=== PATIENT | male | born 1955 | race Caucasian/White ===

== ENCOUNTER 2019-04-17 14:03 | Outpatient (CLI) | payer MEDICAID ==
[2019-04-17 17:52] LABS: BASOPHILS % (AUTO) 0.7 %; EOSINOPHILS % (AUTO) 0.7 %; HGB - HEMOGLOBIN 12.3 g/dL (14.0-18.0); LYMPHOCYTES # (AUTO) 1.2 10^3/uL (1.5-3.5); LYMPHOCYTES % (AUTO) 20.8 %; MEAN CORPUSCULAR HEMOGLOBIN 27.6 pg (27.0-31.0); MEAN CORPUSCULAR HGB CONC 30.6 g/dL (32.0-36.0); MEAN CORPUSCULAR VOLUME 90.1 fL (80.0-94.0); MONOCYTES # (AUTO) 0.3 10^3/uL (0.0-1.0); MONOCYTES % (AUTO) 5.2 %; NEUTROPHILS # (AUTO) 4.3 10^3/uL (1.5-6.6); NEUTROPHILS % (AUTO) 72.3 %; PLT - PLATELET COUNT 408 10^3/uL (130-450); RED BLOOD COUNT 4.46 10^6/uL (4.70-6.10); RED CELL DISTRIBUTION WIDTH 15.4 % (12.0-15.0)
[2019-04-17 17:59] LABS: ALBUMIN 3.1 g/dL (3.2-5.5); ALBUMIN/GLOBULIN RATIO 0.7 (1.0-2.2); ALKALINE PHOSPHATASE 73 IU/L (42-121); ALT ALANINE AMINOTRANSFERASE < 10 IU/L (10-60); AST ASPARTATE AMINOTRANSFERASE 13 IU/L (10-42); BILIRUBIN,TOTAL 0.4 mg/dL (0.2-1.0); BUN - BLOOD UREA NITROGEN 11 mg/dL (6-20); CALCIUM 8.3 mg/dL (8.5-10.3); CARBON DIOXIDE - CO2 23 mmol/L (21-32); CHLORIDE 106 mmol/L (101-111); CREATININE 0.6 mg/dL (0.6-1.2); GFR - MDRD 137 (>89); GLUCOSE 89 mg/dL (70-100); SODIUM 139 mmol/L (135-145); TOTAL PROTEIN 7.4 g/dL (6.7-8.2)
[2019-04-18 13:21] LABS: HEPATITIS C ANTIBODY NON-REACTIVE (NON-REACTIVE)
[2019-04-21 12:12] LABS: HSV 1 IGG TYPE SPECIFIC AB <0.90 index; HSV 2 IGG TYPE SPECIFIC AB >23.00 index
== END 2019-04-17 14:04 | disposition home or self-care (01) ==
LOC: LAB.S 14:03
PROVIDERS: ATTEND Internal Medicine
DX: D75.89 Other specified diseases of blood and blood-forming organs (principal); Z20.2 Contact with and (suspected) exposure to infections with a predominantly sexual mode of transmission
CPT/HCPCS: 36415; 80053; 81599; 85025; 86317; 86592; 86695; 86696; 86803

== ENCOUNTER 2019-09-25 15:06 | Emergency (ER) | payer MEDICAID ==
[2019-09-25] MEDS ORDERED: ONDANSETRON 4 MG/2 ML VIAL IVP STA (15:24)
[2019-09-25] MEDS ORDERED: HYDROmorphone 1 MG/ML CARPUJECT IVP STA (15:24)
--- NOTE | 2019-09-25 15:26 | ED Physician Documentation ---
History of Present Illness - Stated complaint Stated Complaint: Male - Chief complaint Chief Complaint: General - History obtained from History obtained from: Patient - History of Present Illness Timing: Today (He has a longstanding groin hernia, he was always able to pop it back in. Today it popped out and became quite large and uncomfortable and cannot do anything with it. Pain is severe.) Review of Systems Ten Systems: 10 systems reviewed and negative Constitutional: denies: Fever, Chills Cardiac: reports: Reviewed and negative Respiratory: reports: Reviewed and negative GI: denies: Abdominal Pain, Nausea, Vomiting, Constipation, Diarrhea PD PAST MEDICAL HISTORY - Past Medical History Past Medical History: No - Past Surgical History Past Surgical History: No - Present Medications Home Medications: Ambulatory Orders Medication Instructions Recorded Confirmed Azithromycin [Zithromax] 250 mg PO DAILY #6 tablet 06/15/16 Benzonatate [Tessalon] 100 mg PO TID PRN #20 capsule 06/15/16 guaiFENesin/CODEINE [Robitussin AC] 5 - 10 ml PO Q6H PRN #120 udc 06/15/16 Cetirizine [ZyrTEC] 10 mg PO DAILY #20 tablet 06/20/16 dexAMETHasone [Decadron] 4 mg PO DAILY #5 tablet 06/20/16 - Allergies Allergies/Adverse Reactions: Allergies Allergy/AdvReac Type Severity Reaction Status Date / Time ibuprofen Allergy Hives Verified 09/25/19 15:13 - Social History Does the pt smoke?: No Smoking Status: Never smoker Does the pt drink ETOH?: Yes - Family History Family history: reports: Non contributory - POLST Patient has POLST: No PD ED PE NORMAL - Vitals Vital signs reviewed: Yes - General General: Alert and oriented X 3, Other (He appears slightly uncomfortable and agitated) - HEENT HEENT: PERRL, EOMI - Neck Neck: Supple, no meningeal sign, No bony TTP - Cardiac Cardiac: RRR, No murmur - Respiratory Respiratory: No respiratory distress, Clear bilaterally - Abdomen Abdomen: Soft, Non tender, Other (There is a massive right groin hernia Into the scrotum that is firm and tender. Bedside ultrasound confirms that the contents are bowel.) - Back Back: No CVA TTP, No spinal TTP - Derm Derm: Normal color, Warm and dry - Extremities Extremities: No edema, No calf tenderness / cord - Neuro Neuro: Alert and oriented X 3, Normal speech Results - Vitals Vitals: Vital Signs - 24 hr 09/25/19 15:13 Temperature 36.7 C Heart Rate 64 Respiratory 18 Rate Blood Pressure 167/89 H O2 Saturation 98 Oxygen O2 Source Room air - Labs Labs: Laboratory Tests 09/25/19 09/25/19 09/25/19 15:34 15:34 15:34 WBC 10.9 H RBC 5.03 Hgb 15.0 Hct 47.1 MCV 93.6 MCH 29.8 MCHC 31.8 L RDW 14.1 Plt Count 414 MPV 8.8 Neut # (Auto) 9.4 H Lymph # (Auto) 1.0 L [place] # (Auto) 0.3 Eos # (Auto) 0.0 Baso # (Auto) 0.0 Absolute Nucleated RBC 0.00 Nucleated RBC % 0.0 PT 11.9 INR 1.0 Sodium 138 Potassium 3.8 Chloride 104 Carbon Dioxide 23 Anion Gap 11.0 BUN 14 Creatinine 0.7 Estimated GFR (MDRD) 114 Glucose 164 H Calcium 8.6 Total Bilirubin 0.4 AST 16 ALT 10 Alkaline Phosphatase 88 Total Protein 8.0 Albumin 3.4 Globulin 4.6 H Albumin/Globulin Ratio 0.7 L Lipase 31 PD MEDICAL DECISION MAKING - ED course ED course: This is a 64-year-old gentleman with a very large incarcerated inguinal hernia. After some pain medication he actually reduced it himself. It was visually normal after that. It certainly was not prior to the reduction. Departure - Departure Disposition: 01 Home, Self Care Clinical Impression: Incarcerated left inguinal hernia Condition: Good Record reviewed to determine appropriate education?: Yes Instructions: ED Hernia Inguinal Follow-Up: Abel Jacobo MD [Provider Admit Priv/Credential] - Comments: If it pops out like that again and you cannot get it in, return immediately for reevaluation. Otherwise make an appointment with the surgeon for hernia repair. Your blood pressure was elevated today on check into the emergency department. This does not mean that you have hypertension, it is a common phenomenon to come to the emergency department and have elevated blood pressure. I recommend that you see your primary care physician within the week to have it rechecked when you are feeling better.
[2019-09-25 15:41] LABS: BASOPHILS % (AUTO) 0.4 %; EOSINOPHILS % (AUTO) 0.1 %; LYMPHOCYTES % (AUTO) 9.6 %; MEAN CORPUSCULAR HEMOGLOBIN 29.8 pg (27.0-31.0); MEAN CORPUSCULAR HGB CONC 31.8 g/dL (32.0-36.0); MEAN CORPUSCULAR VOLUME 93.6 fL (80.0-94.0); MEAN PLATELET VOLUME 8.8 fL (7.4-11.4); MONOCYTES # (AUTO) 0.3 10^3/uL (0.0-1.0); MONOCYTES % (AUTO) 2.8 %; NEUTROPHILS # (AUTO) 9.4 10^3/uL (1.5-6.6); NEUTROPHILS % (AUTO) 86.5 %; PLT - PLATELET COUNT 414 10^3/uL (130-450); RED BLOOD COUNT 5.03 10^6/uL (4.70-6.10); RED CELL DISTRIBUTION WIDTH 14.1 % (12.0-15.0); WHITE BLOOD COUNT 10.9 x10^3/uL (4.8-10.8)
[2019-09-25 15:54] LABS: ALBUMIN 3.4 g/dL (3.2-5.5); ALBUMIN/GLOBULIN RATIO 0.7 (1.0-2.2); BILIRUBIN,TOTAL 0.4 mg/dL (0.2-1.0); CALCIUM 8.6 mg/dL (8.5-10.3); CREATININE 0.7 mg/dL (0.6-1.2)
[2019-09-25 15:58] LABS: PT - PROTHROMBIN TIME 11.9 secs (9.9-12.6)
[2019-09-25 16:14] VITALS: BP 132/84
== END 2019-09-25 16:27 | disposition home or self-care (01) ==
LOC: ED 15:06
DX: K40.30 Unilateral inguinal hernia, with obstruction, without gangrene, not specified as recurrent (principal); R03.0 Elevated blood-pressure reading, without diagnosis of hypertension
CPT/HCPCS: 36415; 80053; 83690; 85025; 85610; 96374; 96375; 99283; 99284; J1170

== ENCOUNTER 2019-10-07 14:45 | Day surgery (SDC) | payer MEDICAID ==
[2019-10-07] MEDS ORDERED: HYDROmorphone 1 MG/ML CARPUJECT IVP STA ×2 (14:58→15:52)
--- NOTE | 2019-10-07 14:59 | ED Physician Documentation ---
PD HPI ABD PAIN - Stated complaint Stated Complaint: ABD PX - Chief complaint Chief Complaint: Abd Pain - History obtained from History obtained from: Patient (64-year-old gentleman with known left inguinal hernia that is been bothering for a long time. I saw him a couple weeks ago and it was incarcerated but we were able to reduce it after some pain medication. Is been out again for about 3 hours now but not quite as painful as last time. He has an appointment for definitive repair next month.) Review of Systems Constitutional: reports: Reviewed and negative Cardiac: reports: Reviewed and negative Respiratory: reports: Reviewed and negative PD PAST MEDICAL HISTORY - Past Surgical History Past Surgical History: No - Present Medications Home Medications: Ambulatory Orders Medication Instructions Recorded Confirmed Azithromycin [Zithromax] 250 mg PO DAILY #6 tablet 06/15/16 Benzonatate [Tessalon] 100 mg PO TID PRN #20 capsule 06/15/16 guaiFENesin/CODEINE [Robitussin AC] 5 - 10 ml PO Q6H PRN #120 udc 06/15/16 Cetirizine [ZyrTEC] 10 mg PO DAILY #20 tablet 06/20/16 dexAMETHasone [Decadron] 4 mg PO DAILY #5 tablet 06/20/16 - Allergies Allergies/Adverse Reactions: Allergies Allergy/AdvReac Type Severity Reaction Status Date / Time ibuprofen Allergy Hives Verified 10/07/19 14:52 - Social History Does the pt smoke?: No Smoking Status: Never smoker Does the pt drink ETOH?: Yes - POLST Patient has POLST: No PD ED PE NORMAL - Vitals Vital signs reviewed: Yes - General General: Alert and oriented X 3, No acute distress - HEENT HEENT: PERRL, EOMI - Neck Neck: Supple, no meningeal sign, No bony TTP - Cardiac Cardiac: RRR, No murmur - Respiratory Respiratory: No respiratory distress, Clear bilaterally - Abdomen Abdomen: Non tender - Male Male : Other (Large incarcerated and tender left inguinal hernia) - Back Back: No CVA TTP, No spinal TTP - Derm Derm: Normal color, Warm and dry - Extremities Extremities: No edema, No calf tenderness / cord - Neuro Neuro: Alert and oriented X 3, Normal speech - Psych Psych: Normal mood, Normal affect Results - Vitals Vitals: Vital Signs - 24 hr 12/25/19 14:48 Temperature 36.2 C L Heart Rate 84 Respiratory 20 Rate Blood Pressure 161/93 H O2 Saturation 97 Oxygen O2 Source Room air - Labs Labs: Laboratory Tests 10/07/19 10/07/19 15:06 15:06 WBC 7.0 RBC 4.74 Hgb 13.9 L Hct 44.1 MCV 93.0 MCH 29.3 MCHC 31.5 L RDW 14.0 Plt Count 381 MPV 8.4 Neut # (Auto) 5.5 Lymph # (Auto) 0.7 L [place] # (Auto) 0.3 Eos # (Auto) 0.3 Baso # (Auto) 0.0 Absolute Nucleated RBC 0.00 Nucleated RBC % 0.0 Sodium 139 Potassium 3.6 Chloride 102 Carbon Dioxide 25 Anion Gap 12.0 BUN 14 Creatinine 0.7 Estimated GFR (MDRD) 114 Glucose 111 H Calcium 8.6 Total Bilirubin 0.6 AST 17 ALT 12 Alkaline Phosphatase 85 Total Protein 7.6 Albumin 3.6 Globulin 4.0 Albumin/Globulin Ratio 0.9 L Lipase 34 PD MEDICAL DECISION MAKING - ED course ED course: On his last visit I was able to get back and after some meds but after divided rounds of medications here we had no luck and I spoke with Dr. Jacobo at 355. Departure - Departure Disposition: ED Transfer to [facility] Clinical Impression: Incarcerated left inguinal hernia Condition: Stable
[2019-10-07] MEDS ORDERED: ONDANSETRON 4 MG/2 ML VIAL IVP STA (15:09)
[2019-10-07 15:11] LABS: BASOPHILS % (AUTO) 0.6 %; EOSINOPHILS # (AUTO) 0.3 10^3/uL (0.0-0.7); EOSINOPHILS % (AUTO) 4.7 %; HGB - HEMOGLOBIN 13.9 g/dL (14.0-18.0); LYMPHOCYTES # (AUTO) 0.7 10^3/uL (1.5-3.5); LYMPHOCYTES % (AUTO) 10.1 %; MEAN CORPUSCULAR HEMOGLOBIN 29.3 pg (27.0-31.0); MEAN CORPUSCULAR HGB CONC 31.5 g/dL (32.0-36.0); MEAN PLATELET VOLUME 8.4 fL (7.4-11.4); MONOCYTES # (AUTO) 0.3 10^3/uL (0.0-1.0); MONOCYTES % (AUTO) 4.7 %; NEUTROPHILS # (AUTO) 5.5 10^3/uL (1.5-6.6); NEUTROPHILS % (AUTO) 79.5 %; PLT - PLATELET COUNT 381 10^3/uL (130-450); RED BLOOD COUNT 4.74 10^6/uL (4.70-6.10)
[2019-10-07] MEDS ORDERED: ONDANSETRON 4 MG/2 ML VIAL ONE (15:11)
[2019-10-07] MEDS ORDERED: LORazepam 2 MG/ML VIAL IVP STA (15:19)
[2019-10-07 15:28] LABS: ALBUMIN 3.6 g/dL (3.2-5.5); ALBUMIN/GLOBULIN RATIO 0.9 (1.0-2.2); BILIRUBIN,TOTAL 0.6 mg/dL (0.2-1.0); CALCIUM 8.6 mg/dL (8.5-10.3); CREATININE 0.7 mg/dL (0.6-1.2); TOTAL PROTEIN 7.6 g/dL (6.7-8.2)
[2019-10-07] MEDS ORDERED: fentaNYL 100 MCG/2 ML VIAL IVP ONE (16:16)
[2019-10-07] MEDS ORDERED: NEOSTIGMINE 1 MG/1 ML 10 ML MDV IVP ONE (16:16)
[2019-10-07] MEDS ORDERED: GLYCOPYRROLATE 1 MG/5 ML VIAL IVP ONE (16:16)
[2019-10-07] MEDS ORDERED: PROPOFOL 200 MG/20 ML VIAL IVP ONE (16:16)
[2019-10-07] MEDS ORDERED: ROCURONIUM 50 MG/5 ML VIAL IVP ONE (16:16)
[2019-10-07] MEDS ORDERED: ONDANSETRON 4 MG/2 ML VIAL IVP ONE (16:16)
[2019-10-07] MEDS ORDERED: DEXAMETHASONE 4 MG/ML VIAL IVP ONE (16:16)
--- NOTE | 2019-10-07 16:23 | HISTORY & PHYSICAL EXAMINATION ---
HPI - Admitted From Admitted from: ED - History Obtained From Records Reviewed: RN notes reviewed, Old records reviewed History obtained from: Patient Exam limitations: No limitations - History of Present Illness Severity at the worst: reports: Moderate Pain Quality: reports: Sharp, Aching, Cramping Context-Pain started w/: reports: Exertion, Movement, Palpation, Rest Timing: reports: Gradual onset Duration: reports: Hours: (At least 6) Associated symptoms: reports: Nausea HPI Comment/Other: Juni is a 64-year-old gentleman who is well-known to me. He has a large left inguinal hernia that I have seen him for in the office and in fact he is already on the operating room scheduled to have it repaired. He was seen in our emergency department about 2 weeks ago with an incarceration of this hernia and was subsequently able to reduce it. Unfortunately, it came out sometime this morning and he is not been able to get it back in since. He admits that he lets it sort of hang out for a while before he tries to reduce it but this time it became so swollen that he is not been able to move it. Additionally he has been very nauseated. He reports that he is in significantly more pain than he was last I saw him PMH/PSH - Past Medical History Cardiovascular: positive: None Respiratory: positive: Other (Chronic cough) Neuro: positive: None Endocrine/Autoimmune: positive: None GI: positive: None [employer]: positive: None : positive: None HEENT: positive: None Psych: positive: None Musculoskeletal: positive: None Derm: positive: None MRSA Hx?: No Social & Family Hx - Social History Does the pt smoke?: No Smoking Status: Never smoker Does the pt drink ETOH?: Yes - POLST Patient has POLST: No Meds/Allgy - Home Medications Home Medications: Ambulatory Orders Medication Instructions Recorded Confirmed Aspirin 975 mg PO Q8H 10/07/19 10/07/19 - Allergies Allergies/Adverse Reactions: Allergies Allergy/AdvReac Type Severity Reaction Status Date / Time ibuprofen Allergy Hives Verified 10/07/19 14:52 Review of Systems - Respiratory Respiratory: reports: Cough - Gastrointestinal Gastrointestinal: reports: Abdominal pain, Nausea - All Other Systems All Other Systems: reports: Reviewed and negative Exam - Vital Signs Reviewed Vital Signs: Yes Vital Signs: Vital Signs x48h Temp Pulse Resp BP Pulse Ox 10/07/19 16:02 36.8 C 55 L 12 164/91 H 97 10/07/19 14:48 36.2 C L 84 20 161/93 H 97 - Physical Exam General Appearance: positive: Alert, Moderate distress Eyes Bilateral: positive: Normal inspection, PERRL, EOMI ENT: positive: ENT inspection nml, Pharynx nml, No signs of dehydration Neck: positive: Nml inspection, No JVD, Trachea midline. negative: Thyromegaly Respiratory: positive: Chest non-tender, No respiratory distress, Breath sounds nml Cardiovascular: positive: Regular rate & rhythm, No murmur Peripheral Pulses: positive: 1+ Abdomen: positive: Other (Very large, incarcerated left inguinal hernia. Borborygmi within the sack. No erythema of the overlying skin) Back: negative: CVA tenderness (R), CVA tenderness (L) Skin: positive: Color nml Extremities: positive: Non-tender, Full ROM Neurologic/Psychiatric: positive: Oriented x3, Other (No focal deficit) Results - Lab Results Fish Bones: 10/07/19 15:06 10/07/19 15:06 Other Lab Results: Lab Results x24hrs 10/07/19 10/07/19 Range/Units 15:06 15:06 WBC 7.0 (4.8-10.8) x10^3/uL RBC 4.74 (4.70-6.10) 10^6/uL Hgb 13.9 L (14.0-18.0) g/dL Hct 44.1 (42.0-52.0) % MCV 93.0 (80.0-94.0) fL MCH 29.3 (27.0-31.0) pg MCHC 31.5 L (32.0-36.0) g/dL RDW 14.0 (12.0-15.0) % Plt Count 381 (130-450) 10^3/uL MPV 8.4 (7.4-11.4) fL Neut # (Auto) 5.5 (1.5-6.6) 10^3/uL Lymph # (Auto) 0.7 L (1.5-3.5) 10^3/uL [place] # (Auto) 0.3 (0.0-1.0) 10^3/uL Eos # (Auto) 0.3 (0.0-0.7) 10^3/uL Baso # (Auto) 0.0 (0.0-0.1) 10^3/uL Absolute Nucleated RBC 0.00 x10^3/uL Nucleated RBC % 0.0 /100WBC Sodium 139 (135-145) mmol/L Potassium 3.6 (3.5-5.0) mmol/L Chloride 102 (101-111) mmol/L Carbon Dioxide 25 (21-32) mmol/L Anion Gap 12.0 (6-13) BUN 14 (6-20) mg/dL Creatinine 0.7 (0.6-1.2) mg/dL Estimated GFR (MDRD) 114 (>89) Glucose 111 H (70-100) mg/dL Calcium 8.6 (8.5-10.3) mg/dL Total Bilirubin 0.6 (0.2-1.0) mg/dL AST 17 (10-42) IU/L ALT 12 (10-60) IU/L Alkaline Phosphatase 85 (42-121) IU/L Total Protein 7.6 (6.7-8.2) g/dL Albumin 3.6 (3.2-5.5) g/dL Globulin 4.0 (2.1-4.2) g/dL Albumin/Globulin Ratio 0.9 L (1.0-2.2) Lipase 34 (22-51) U/L Impression/Plan - Problem List Problem List: Incarcerated left inguinal hernia with bowel obstruction. We have discussed the risks and benefits of repair and the patient has expressed his desire to complete the procedure today. We will proceed to the operating room as soon as a room is available.
--- NOTE | 2019-10-07 16:30 | PHARMACY PROGRESS NOTE ---
- Best Possible Medication History Admit Date and Time: Processed by: Pharmacy Medication History completed: Yes Patient Interview: Completed As the person ultimately responsible for medication therapy, providers are able to order a medication from an existing home medication list in [facility] via the "Reconcile Routine" prior to Confirmation of that medication by desktop support engineer. Such practice is discouraged except when the physician, in their clinical judgment, deems that a medical need exists for a medication without regard to previous use.
[2019-10-07] MEDS ORDERED: ceFAZolin 2 GM in SODIUM CHLORIDE 0.9% 100ML 100 ML IV STA (17:15)
--- NOTE | 2019-10-07 18:01 | ANESTHESIA ---
Pre-Anesthesia VS, & Labs - Diagnosis left incarcerated inguinal hernia - Procedure left inguinal hernia repair Vital Signs: Temp Pulse Resp BP Pulse Ox 36.8 C 55 L 12 164/91 H 97 10/07/19 16:02 10/07/19 16:02 10/07/19 16:02 10/07/19 16:02 10/07/19 16:02 Height 5 ft 10 in Weight (kg) 49.895 kg Body Mass Index 15.7 - Lab Results Current Lab Results: Laboratory Tests 10/07/19 15:06: Sodium 139, Potassium 3.6, Chloride 102, Carbon Dioxide 25, Anion Gap 12.0, BUN 14, Creatinine 0.7, Estimated GFR (MDRD) 114, Glucose 111 H, Calcium 8.6, Total Bilirubin 0.6, AST 17, ALT 12, Alkaline Phosphatase 85, Total Protein 7.6, Albumin 3.6, Globulin 4.0, Albumin/Globulin Ratio 0.9 L, Lipase 34 10/07/19 15:06: WBC 7.0, RBC 4.74, Hgb 13.9 L, Hct 44.1, MCV 93.0, MCH 29.3, MCHC 31.5 L, RDW 14.0, Plt Count 381, MPV 8.4, Neut # (Auto) 5.5, Lymph # (Auto) 0.7 L, [place] # (Auto) 0.3, Eos # (Auto) 0.3, Baso # (Auto) 0.0, Absolute Nucleated RBC 0.00, Nucleated RBC % 0.0 Fish Bones: 10/07/19 15:06 10/07/19 15:06 Home Medications and Allergies Home Medications: Ambulatory Orders Aspirin 975 mg PO Q8H 10/07/19 Aspirin 975 mg PO Q8H 10/07/19 Allergies/Adverse Reactions: Allergies Allergy/AdvReac Type Severity Reaction Status Date / Time ibuprofen Allergy Hives Verified 10/07/19 14:52 Anes History & Medical History - Anesthetic History Anesthesia Complications: reports: Other-see comment (denies having any anesthetic in the past) Family history of Anesthesia Complications: Denies Family history of Malignant Hyperthermia: Denies - Medical History Cardiovascular: reports: None Pulmonary: reports: Other (Chronic cough) Gastrointestinal: reports: None Urinary: reports: None Neuro: reports: None Musculoskeletal: reports: None Endocrine/Autoimmune: reports: None Blood Disorders: reports: None Skin: reports: None Smoking Status: Never smoker (smokes week through a water pipe everyday) Psychosocial: reports: No issues indicated Exam General: Alert, Oriented x3, Cooperative, No acute distress Dental: Poor dentition (very poor dentition) Mouth Openin Fingerbreadth Neck Mobility: Normal Mallampati classification: II Thyromental Distance: 4-6 cm Respiratory: Lungs clear, Normal breath sounds, No respiratory distress, No accessory muscle use Cardiovascular: Regular rate, Normal S1, Normal S2, No murmurs Abdomen: Normal bowel sounds, Soft, No tenderness, No hepatospenomegaly, No masses, Other (reports pain in the left groin area) Extremities: No clubbing, No cyanosis, No edema, Normal pulses, No tenderness/swelling Neurological: Normal gait, Normal speech, Strength at 5/5 X4 ext, Normal tone, Sensation intact, Cranial nerves 3-12 NL, Reflexes 2+ Mental/Cognitive Status: Alert/Oriented X3, Normal for patient Cognitive Status: Within normal limits Plan Anesthesia Type: General Consent for Procedure(s) Verified and Reviewed: Yes Code Status: Attempt Resuscitation ASA classification: 2-Mild systemic disease Is this case an emergency?: Yes
[2019-10-07] MEDS ORDERED: ceFAZolin 1 GM VIAL ONE (18:20)
[2019-10-07] MEDS ORDERED: BUPIVACAINE 0.5% PF 30 ML VIAL ONE (18:20)
[2019-10-07] MEDS ORDERED: LIDOCAINE 1%-EPI 1:100000 20 ML MDV ONE (18:20)
[2019-10-07] MEDS: LACTATED RINGERS 1,000 ML IV ONE (19:23)
[2019-10-07] MEDS ORDERED: LACTATED RINGERS 1,000 ML IV ONE (19:23)
[2019-10-07] MEDS ORDERED: ONDANSETRON 4 MG/2 ML VIAL IVP PRN (19:55)
[2019-10-07] MEDS ORDERED: oxyCODONE 5 MG TABLET PO PRN (19:55)
[2019-10-07] MEDS ORDERED: ACETAMINOPHEN 325 MG TABLET PO PRN (19:55)
--- NOTE | 2019-10-07 19:55 | OPERATIVE REPORT ---
Operative Report - General Procedure Date: 10/07/19 Planned Procedure: Left inguinal hernia repair Pre-Op Diagnosis: Very large incarcerated left inguinal hernia with bowel obstruction Procedure Performed: Left inguinal hernia repair Post Op Diagnosis: Large indirect left inguinal hernia - Procedure Note Primary Surgeon: Odalis Anesthesia Provider: DEANDRA Clayton Anesthesia Technique: General LMA, Local, Regional block Pathology: None Estimated Blood Loss (mL): 10 Findings: Very large indirect left inguinal hernia. Hernia spontaneously reduced after induction of anesthesia Complications: None apparent - Other Other Information/Narrative: After obtaining informed consent, the patient is brought to the operating room and placed in the supine position on the operating table. Following successful induction of general anesthesia, appropriate padding of all bony prominences, and placement of appropriate monitors, the abdomen was prepped and draped in the standard surgical fashion. A timeout was held per scope protocol. All elements of the surgical safety checklist were followed before, during, and after the procedure. We began the procedure by infiltrating a mixture of local anesthetics medial to the anterior superior iliac spine on the left. This was to provide an ileal inguinal nerve block. We then selected a site for the incision in the left inguinal region. This was anesthetized and the incision was created and carried down through the skin and subcutaneous tissue. Eric's fascia was divided revealing the external oblique aponeurosis. The aponeurosis was opened in the direction of its fibers revealing a large fluid containing, somewhat deflated sac.The sac continued along with the spermatic cord to the left groin. It was carefully reduced out of the scrotum and carefully dissecting it free from the spermatic cord and associated vessels. The sac was then reduced back into the abdominal cavity. We elected to repair this very large defect with a large Prolene hernia system bilayer mesh implant. This was dipped in Ancef solution and deployed into the defect per excel vba developer's directions. The overlying leaflet was then nicked laterally for placement of the spermatic cord. The leaflets were then reapproximated with a single suture. The overlying layer was sewn to the pubic tubercle medially, and the transversalis fascia superiorly and laterally. The wound was then checked for hemostasis and irrigated with Ancef containing solution. The spermatic cord was seen to lie without tension on the surface of the mesh. The extra oblique aponeurosis was then reapproximated with running Vicryl suture Eric's fascia was closed in same fashion, and Monocryl stitches were placed in the skin. All sponge, needle, and instrument counts were correct at the conclusion of the case. The patient was allowed awaken from anesthesia without difficulty and taken to the postanesthesia care unit in good condition.
[2019-10-07] MEDS ORDERED: oxyCODONE/ACET 5/325 Prepack 4 PO ONE (22:43)
[2019-10-07 23:34] VITALS: BP 138/87
== END 2019-10-07 23:39 | disposition home or self-care (01) ==
LOC: ED 14:45 → SDS 16:15 → MS2 19:41 → SDS 23:39
PROVIDERS: ATTEND Surgery
PROC: 0YU60JZ Supplement Left Inguinal Region with Synthetic Substitute, Open Approach (ICD-10-PCS; principal; 2019-10-07 16:30)
DX: K40.30 Unilateral inguinal hernia, with obstruction, without gangrene, not specified as recurrent (principal)
CPT/HCPCS: 36415; 49505; 80053; 83690; 85025; 96374; 96375; 99283; 99285; A9270; C1781; J1170; J2060; J7120

== ENCOUNTER 2020-05-27 13:42 | Outpatient (CLI) | payer MEDICAID ==
--- NOTE | 2020-05-28 06:20 | XRAY Report ---
PROCEDURE: Hip 1 View LT INDICATIONS: LEFT HIP FRACTURE TECHNIQUE: 3 views of the hip were acquired. COMPARISON: 05/18/2020 FINDINGS: Bones: Patient is status post internal fixation of previously noted comminuted femoral neck/intertroc hanteric fracture with intramedullary raffi and femoral neck fixation screw placement. There is improve d left hip alignment. No new fracture or dislocation. 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 No suspicious bony lesions. The visualized pelvic ring appears intact. Soft tissues: No suspicious soft tissue calcifications or masses. IMPRESSION: Post ORIF changes in proximal left femur/femoral neck with improved left hip alignment. Reviewed by: Randy Castellanos MD on 05/27/2020 1:28 PM VANITA Approved by: Randy Castellanos MD on 05/27/2020 1:28 PM VANITA Station ID: [id number]
== END 2020-05-27 23:59 | disposition home or self-care (01) ==
LOC: DI.WCP 13:42
PROVIDERS: ATTEND Orthopaedic Surgery
DX: S72.142D Displaced intertrochanteric fracture of left femur, subsequent encounter for closed fracture with routine healing (principal)

== ENCOUNTER 2020-06-13 08:00 | Outpatient (CLI) | payer MEDICAID | END 2020-06-13 08:01 | disposition home or self-care (01) | LOC: DI.WCP 08:00 | PROVIDERS: ATTEND Orthopaedic Surgery | DX: Z01.812 Encounter for preprocedural laboratory examination (principal); Z20.828 Contact with and (suspected) exposure to other viral communicable diseases ==

== ENCOUNTER 2020-06-15 06:46 | Inpatient (IN) | payer MEDICAID ==
[2020-06-15] MEDS ORDERED: LACTATED RINGERS 1,000 ML IV ONE ×2 (06:55→13:48)
[2020-06-15] MEDS ORDERED: CEFAZOLIN SODIUM IN 0.9 % NACL 2 GM/100 ML BAG IV ONE (06:57)
[2020-06-15] MEDS ORDERED: CELECOXIB 100 MG CAPSULE PO ONE (06:57)
[2020-06-15] MEDS ORDERED: ACETAMINOPHEN 1,000 MG/100 ML 100 ML IV ONE ×2 (06:57→08:58)
[2020-06-15] MEDS ORDERED: EPINEPHrine 1 MG/ML AMP ONE (07:25)
[2020-06-15] MEDS ORDERED: BUPIVACAINE 0.5% PF 30 ML VIAL ONE (07:28)
[2020-06-15] MEDS ORDERED: KETOROLAC 30 MG/ML VIAL ONE (07:28)
[2020-06-15] MEDS ORDERED: ROPIVACAINE 0.2% PF 20ML VIAL ONE (07:28)
[2020-06-15 07:41] LABS: BASOPHILS # (AUTO) 0.1 10^3/uL (0.0-0.1); EOSINOPHILS % (AUTO) 0.3 %; HGB - HEMOGLOBIN 14.7 g/dL (14.0-18.0); LYMPHOCYTES # (AUTO) 1.1 10^3/uL (1.5-3.5); LYMPHOCYTES % (AUTO) 18.7 %; MEAN CORPUSCULAR HEMOGLOBIN 29.7 pg (27.0-31.0); MEAN CORPUSCULAR HGB CONC 31.7 g/dL (32.0-36.0); MEAN CORPUSCULAR VOLUME 93.7 fL (80.0-94.0); MONOCYTES # (AUTO) 0.3 10^3/uL (0.0-1.0); MONOCYTES % (AUTO) 5.6 %; NEUTROPHILS # (AUTO) 4.3 10^3/uL (1.5-6.6); NEUTROPHILS % (AUTO) 73.9 %; PLT - PLATELET COUNT 372 10^3/uL (130-450); RED BLOOD COUNT 4.95 10^6/uL (4.70-6.10); RED CELL DISTRIBUTION WIDTH 15.4 % (12.0-15.0); WHITE BLOOD COUNT 5.9 x10^3/uL (4.8-10.8)
--- NOTE | 2020-06-15 08:00 | ANESTHESIA ---
Pre-Anesthesia VS, & Labs - Diagnosis left femoral neck fracture - Procedure left Total hip arthroplasty, removal failed hardware Vital Signs: Temp Pulse Resp BP Pulse Ox 36.4 C L 96 12 133/95 H 99 06/15/20 06:56 06/15/20 06:56 06/15/20 06:56 06/15/20 06:56 06/15/20 06:56 Height 5 ft 6 in Weight (kg) 49 kg Body Mass Index 15.7 - NPO >8 hours - Lab Results Current Lab Results: Laboratory Tests 06/15/20 07:15: WBC 5.9, RBC 4.95, Hgb 14.7, Hct 46.4, MCV 93.7, MCH 29.7, MCHC 31.7 L, RDW 15.4 H, Plt Count 372, MPV 9.0, Neut # (Auto) 4.3, Lymph # (Auto) 1.1 L, [place] # (Auto) 0.3, Eos # (Auto) 0.0, Baso # (Auto) 0.1, Absolute Nucleated RBC 0.00, Nucleated RBC % 0.0 Lab results reviewed: Yes Fish Bones: 06/15/20 07:15 Home Medications and Allergies Home Medications: Ambulatory Orders Acetaminophen [Tylenol] 650 mg PO Q6H PRN 06/13/20 Aspirin 325 mg PO Q8H 10/07/19 Acetaminophen [Tylenol] 650 mg PO Q6H PRN 06/13/20 Allergies/Adverse Reactions: Allergies Allergy/AdvReac Type Severity Reaction Status Date / Time ibuprofen Allergy Hives Verified 10/07/19 14:52 Anes History & Medical History - Anesthetic History Anesthesia Complications: reports: No previous complications Family history of Anesthesia Complications: Denies Family history of Malignant Hyperthermia: Denies - Medical History Cardiovascular: reports: None Pulmonary: reports: None Gastrointestinal: reports: None Urinary: reports: None Neuro: reports: None Musculoskeletal: reports: Rheumatoid arthritis, Chronic back pain Endocrine/Autoimmune: reports: None Blood Disorders: reports: None Skin: reports: None Smoking Status: Current every day smoker Psychosocial: reports: Cannabis - Surgical History General: Other Orthopedic: Other Exam General: Alert, Oriented x3, Cooperative, No acute distress Dental: Poor dentition Mouth Openin Fingerbreadth Neck Mobility: Normal Mallampati classification: I Respiratory: Lungs clear, Normal breath sounds, No respiratory distress, No accessory muscle use Cardiovascular: Regular rate, Normal S1, Normal S2, No murmurs Plan Anesthesia Type: General, Fascia Iliaca Block Regional Block: Per Surgeon's request for Post Op pain control Consent for Procedure(s) Verified and Reviewed: Yes Code Status: Attempt Resuscitation ASA classification: 3-Severe systemic disease Is this case an emergency?: No
[2020-06-15] MEDS ORDERED: PROPOFOL 200 MG/20 ML VIAL IVP ONE (08:58)
[2020-06-15] MEDS ORDERED: fentaNYL 100 MCG/2 ML VIAL IVP ONE (08:58)
[2020-06-15] MEDS ORDERED: TRANEXAMIC ACID 1,000 MG/10 ML VIAL IV ONE (08:58)
[2020-06-15] MEDS ORDERED: LIDOCAINE-MPF 2% 5 ML VIAL IM ONE (08:58)
[2020-06-15] MEDS ORDERED: ROCURONIUM 50 MG/5 ML VIAL IVP ONE (08:58)
[2020-06-15] MEDS ORDERED: KETOROLAC 30 MG/ML VIAL IVP ONE (08:58)
[2020-06-15] MEDS ORDERED: ONDANSETRON 4 MG/2 ML VIAL IVP ONE (08:58)
[2020-06-15] MEDS ORDERED: DEXAMETHASONE 4 MG/ML VIAL IVP ONE (08:58)
[2020-06-15] MEDS ORDERED: MORPHINE 2 MG/ML CARPUJECT IVP PRN (09:01)
[2020-06-15] MEDS ORDERED: ATROPINE ABBOJECT 1 MG/10 ML SYRINGE IVP PRN (09:01)
[2020-06-15] MEDS ORDERED: METOCLOPRAMIDE 10 MG/2 ML VIAL IVP PRN (09:01)
[2020-06-15] MEDS ORDERED: NALOXONE 0.4 MG/ML VIAL IVP PRN (09:01)
[2020-06-15] MEDS ORDERED: fentaNYL 100 MCG/2 ML VIAL IVP PRN (09:01)
[2020-06-15] MEDS ORDERED: ePHEDrine 50 MG/ML VIAL IVP PRN (09:01)
[2020-06-15] MEDS ORDERED: ONDANSETRON 4 MG/2 ML VIAL IVP PRN ×2 (09:01→13:27)
[2020-06-15] MEDS ORDERED: HYDROmorphone 0.5 MG/0.5 ML SYRINGE IVP PRN (09:01)
[2020-06-15] MEDS ORDERED: LACTATED RINGERS 1,000 ML IV SCH (10:00)
--- NOTE | 2020-06-15 13:10 | XRAY Report ---
PROCEDURE: Hip w/Pelvis 1V LT INDICATIONS: IMPLANT PLACEMENT TECHNIQUE: AP pelvis with lateral view(s) of the bilateral hip(s). COMPARISON: 05/27/2020 FINDINGS: Single lateral view of the left hip demonstrates interval left total hip arthroplasty. No gross evide nce of an acute complicating hardware features. IMPRESSION: No gross evidence of acute, getting features status post left total hip arthroplasty. Reviewed by: Tee Madsen MD on 06/15/2020 1:08 PM PDT Approved by: Tee Madsen MD on 06/15/2020 1:08 PM PDT Station ID: [id number]
--- NOTE | 2020-06-15 13:22 | OPERATIVE REPORT ---
Operative Report - General Admit Date: 06/15/20 Procedure Date: 06/15/20 Planned Procedure: Removal of internal fixation left hip, left total hip arthroplasty Pre-Op Diagnosis: Mechanical failure of internal fixation, femoral neck fracture left hip, de Post Op Diagnosis: Same as preoperative diagnosis - Procedure Note Primary Surgeon: Dr. Elroy Gleason Secondary Surgeon: TIMO Garrido Anesthesia Technique: General ET tube, Regional block Estimated Blood Loss (mL): 400 Indications: This is a 64-year-old man who previously underwent intramedullary raffi and hip screw Fixation of a basilar femoral neck fracture to the left hip. His Fall was associated with weakness and perhaps alcohol use. He has a history of polyarticular rheumatoid arthritis but has not had any treatment for his arthritis. He has decreased body mass index. His fracture displaced and the lag screw cut out leading to fracture fixation failure left hip. Because of his history of rheumatoid arthritis and poor bone quality, conversion to a left total hip arthroplasty was felt to be the best for this patient and he was in agreement. Findings: The patient had a femoral neck fracture, no sign of healing, varus angulation at fracture site. The lag screw was loose within the femoral head. He had markedly decreased bone density to the femoral head, acetabulum and femur. There is no sign of any infection about the operative site either superficial or deep.The acetabulum had rather extensive articular cartilage loss, certainly much more diffuse than just the lag screw cut out region. Complications: None noted - Other Other Information/Narrative: The patient underwent a left total hip arthroplasty utilizing [employer] total hip arthroplasty system:Size 15 readapt femoral standard offset component, sleeveless and 290 mm in length with 36 mm Oxinium femoral head,And A physician fish hatchery assistant was utilized during the procedure to help with the exposure, reduction of hip, wound closure as well as prepping and draping. The patient was brought to the operating room, placed in a supine position. He was given a general endotracheal anesthetic, turned to the lateral decubitus position using a pegboard. The left hip and lower extremity was prepped and draped in a sterile manner in the usual fashion. The previous small incisions about the lateral hip were incorporated into a longitudinal lateral incision. The fascia duke was split and an initial self-retaining retractor was inserted. The vastus lateralis muscle was split exposing the distal locking screw and lag screw. The dissection was continued proximally reflecting the anterior third of the gluteus medius and splitting some of the gluteus medius muscle to expose the proximal end of the intramedullary raffi. The proximal locking screw was loosened and the lag screw was then removed from the femoral head. The lag screw was grossly loose and without sign of any infection. An anterior exposure of the hip was performed reflecting the gluteus medius and splitting the anterior hip capsule in a T-shaped fashion. The femoral head was removed with a corkscrew and measured approximately 46 mm in diameter. There is no sign of any fracture healing. The acetabulum was exposed with anterior and posterior acetabular retractors placed directly against bone to reduce any soft tissue impingement. The rim of the acetabulum was carefully exposed and the labrum was debrided as well as the ligamentum teres. He had bone loss all the way to the inner wall of the acetabulum and had most of the articular cartilage absent to the medial and superior aspect of the acetabulum. Reaming was started at 43 mm and carried out in 1 mm increments to 51 mm. The acetabulum was under reamed by 1 mm since he had reduced bone density. The 52 mm trial seemed to fit well. Therefore, a 52 mm press-fit 3-hole acetabular cup was impacted in 40 degrees of abduction and 20 degrees of anteversion. He had very good stability to push pull and rotation but because of reduced bone density, 2 acetabular screws were placed superiorly 135 mm in length and the other 30. Fixation of the acetabulum seem to be very good, especially considering his reduced bone density. A trial acetabular liner was inserted. The femoral canal was approached. The extractor for the femoral raffi was threaded and screwed into the intramedullary raffi after the distal locking screw has been removed. The intramedullary raffi was easily removed, again not seen any sign of infection in the femoral canal. The femoral canal was opened with a box osteotome and starting reamer. Canal reaming was performed using the INRIX femoral reaming system. A #15 size seem to provide good fixation and a trial reduction was performed. The trial reduction showed good stability and motion. A #15 femoral component was impacted. This provided very good stability to push pull and rotation. Trial reduction was performed. After the trial reduction, a 36 mm +4 mm femoral head was impacted on the femoral trunnion. The hip was reduced and was very stable to motion including abduction and external rotation. A shuck test showed good leg length tension. The wound was irrigated with dilute Betadine solution for 3 minutes, then pulsatile lavage. The vastus lateralis, hip capsule and gluteal muscles were closed with #1 Vicryl. The fascia duke was closed with #1 Vicryl. The subcutaneous tissue was closed with 2-0 Vicryl. Skin was closed with a Monocryl 3-0 suture and Dermabond. Before the closure had been completed, an intraoperative x-ray, single AP view was obtained and show satisfactory alignment of the hip arthroplasty and no sign of any intraoperative fracture. The patient's blood loss was slightly greater than normal. He seemed to have increased tissue bleeding, more of an oozing rather than a discrete blood vessel.neutral acetabular liner with 52 mm 3 hole acetabular cup. The acetabular liner was a neutral liner.He tolerated the procedure well, no clinical deformity of left leg, good range of motion and stability to left hip
[2020-06-15] MEDS ORDERED: oxyCODONE 5 MG TABLET PO PRN (13:27)
[2020-06-15] MEDS ORDERED: SODIUM CHLORIDE 0.9% 1,000 ML IV SCH (14:00)
--- NOTE | 2020-06-15 14:31 | ANESTHESIA POST OP EVALUATION ---
Anesthesia Post Eval - Post Anesthesia Eval Vitals: Last Vital Signs Temp 36 C L 06/15/20 14:15 Pulse 98 06/15/20 14:15 Resp 13 06/15/20 14:15 BP 118/87 H 06/15/20 14:15 Pulse Ox 96 06/15/20 14:15 CV Function Including HR & BP: positive: Stable Pain Control: positive: Satisfactory Nausea & Vomiting: positive: Negative Mental Status: positive: Baseline Respiratory Status: Airway Patent Hydration Status: Satisfactory Anesthesia Complications: positive: None
[2020-06-15] MEDS: ACETAMINOPHEN 325 MG TABLET PO PRN ×2 (14:55→20:27)
--- NOTE | 2020-06-15 15:41 | CONSULTATION NOTE ---
Referring Provider Name of Referring Provider:: Dr. Gleason Consult Date: 06/15/20 Chief Complaint - Chief Complaint Chief Complaint: left hip pain History of Present Illness - History Obtained From History obtained from: pt - History of Present Illness HPI Comment/Other: This is a 64-year-old man with a PMH significant for RA, chronic back pain, alcoholism, who had recently femoral neck fracture to the left hip from his fall and repaired in hospital. His fracture displaced and the lag screw cut out leading to fracture fixation failure left hip. orthopedics surgeon did conversion to a left total hip arthroplasty for pt today. hospitalist team was consulted for medical measurement. History - Past Medical History Cardiovascular: reports: None Respiratory: reports: None Neuro: reports: None Endocrine/Autoimmune: reports: None GI: reports: None RECONCILIATION MANAGER: reports: None : reports: None HEENT: reports: Chronic vision loss Psych: reports: None Musculoskeletal: reports: Rheumatoid arthritis, Chronic back pain Derm: reports: None MRSA Hx?: No - Past Surgical History General: reports: Other Ortho: reports: Other - POLST Patient has POLST: No Meds/Allgy - Home Medications Home Medications: Ambulatory Orders Medication Instructions Recorded Confirmed Ferrous Sulfate [Feosol] 325 mg PO DAILY #30 tablet 05/20/20 06/15/20 Vitamin [Trinatal Rx 1] 1 tab PO DAILYWM #30 tablet 05/20/20 06/15/20 Thiamine [Vitamin B-1] 100 mg PO DAILY #30 tablet 05/20/20 06/15/20 Acetaminophen [Tylenol] 650 mg PO Q6H PRN 06/13/20 06/15/20 - Allergies Allergies/Adverse Reactions: Allergies Allergy/AdvReac Type Severity Reaction Status Date / Time ibuprofen Allergy Hives Verified 10/07/19 14:52 Review of Systems - Constitutional Constitutional: denies: Fatigue, Fever, Chills, Weakness, Poor appetite, Danita phoresis - Eyes Eyes: denies: Pain, Blurred vision, Spots in vision, Field loss, Vision loss, Dipolpia - Ears, Nose & Throat Ears, Nose & Throat: denies: Ear pain, Nasal pain, Nasal discharge, Nosebleeds, Nasal obstruction, Postnasal drainage, Bleeding gums - Cardiovascular Cariovascular: denies: Irregular heart rate, Palpitations, Chest pain, Edema, Lightheadedness, Syncope, Exertional dyspnea, Decr. exercise tolerance - Respiratory Respiratory: denies: Cough, Sputum production, Wheezing, Snoring, Hemoptysis, Orthopnea, SOB at rest, SOB with exertion, Apnea - Gastrointestinal Gastrointestinal: denies: Abdominal pain, Abdominal distention, Constipation, Diarrhea, Rectal bleeding, Black stools, Bloody stools, Nausea, Vomiting, Fran blood emesis, Coffee grounds emesis, Reflux/heartburn - Genitourinary Genitourinary: denies: Dysuria, Frequency, Urgency, Hematuria, Incontinence, Flank pain, Nocturia, Urethral discharge - Musculoskeletal Musculoskeletal: reports: Limited range of motion, Joint pain. denies: Muscle pain, Back pain, Muscle aches, Stiffness, Joint swelling - Integumentary Integumentary: denies: Rash, Lesions, Dryness, Lumps, Acne, Pigment changes, Nail changes - Neurological Neurological: denies: General weakness, Focal weakness, Headache, Dizziness, Numbness, Memory problems, Pre-existing deficit, Abnormal gait, Seizures, Incoordination, Slurred speech - Psychiatric Psychiatric: denies: Depression, Anxiety, Suicidal, Delusions, Hallucinations, Homicidal - Endocrine Endocrine: denies: Polydypsia, Polyphagia - Hematologic/Lymphatic Hematologic/Lymphatic: denies: Anemia, Bruising, Petechiae, Blood clots, Lymphadenopathy, Bleeding tendencies Exam - Vital Signs Vital Signs: Vital Signs x48h Temp Pulse Pulse Resp BP BP Pulse Ox 06/15/20 15:08 36.5 C 91 14 96 06/15/20 14:40 36.5 C 91 14 107/70 98 06/15/20 14:15 36 C L 98 13 118/87 H 96 06/15/20 14:10 36.1 C L 98 13 113/77 98 06/15/20 14:05 99 10 L 116/77 97 06/15/20 14:00 36 C L 102 H 12 110/72 98 06/15/20 13:55 102 H 15 115/82 H 98 06/15/20 13:48 36 C L 102 H 15 124/79 100 - Physical Exam General Appearance: positive: No acute distress, Alert. negative: Lethargic Eyes Bilateral: positive: Normal inspection, PERRL, No lid inflammation ENT: positive: ENT inspection nml, No signs of dehydration. negative: Purulent nasal drainage Neck: positive: Nml inspection, Thyroid nml, Trachea midline. negative: Thyromegaly, Stiff neck, Tracheal deviation Respiratory: positive: Chest non-tender, No respiratory distress. negative: Wheezes, Rales, Rhonchi Cardiovascular: positive: Regular rate & rhythm, No murmur. negative: Irregularly irregular, Tachycardia, Bradycardia, Systolic murmur, Diastolic murmur Peripheral Pulses: positive: 2+ Abdomen: positive: Non-tender, No organomegaly, Nml bowel sounds, No distention. negative: Tenderness, Guarding, Rebound Back: positive: Nml inspection. negative: CVA tenderness (R), CVA tenderness (L) Skin: positive: Color nml, No rash, Warm, Dry. negative: Cyanosis, Diaphoresis, Pallor Extremities: positive: Nml appearance. negative: Calf tenderness, Trista's sign/cords Neurologic/Psychiatric: positive: Oriented x3, Sensation nml, Mood/affect nml. negative: Weakness, Sensory loss, Facial droop, Slurred/abnml speech, Depressed mood/affect Conclusion/Plan - Plan Plan: 1, status post of left total hip arthroplasty. Patient still complaining hip pain, added Toradol as needed for patient. Continue physical therapist occupational therapist E/T on tomorrow, Aspirin for DVT prophylaxis per surgeon, consult public health social worker for d/c plan. Continue chemical laboratory scientist 2, Rheumatoid arthritis, Continue patient's home aspirin, Advised patient continue follow-up his appraiser as outpatient 3, hx of alcoholism, Patient reported he has no alcohol withdrawal in the past. resume home and vitamin B-1 4, Per surgeon suggestion patient is likely to have osteoporosis, Add calcium carbonate and vitamin D3 for patient - Lab Results Lab results reviewed: Yes Fish Bones: 06/15/20 07:15 06/15/20 15:54
[2020-06-15 16:12] LABS: ALBUMIN 3.2 g/dL (3.2-5.5); BILIRUBIN,TOTAL 0.9 mg/dL (0.2-1.0); CALCIUM 8.3 mg/dL (8.5-10.3); CREATININE 1.1 mg/dL (0.6-1.2); TOTAL PROTEIN 6.5 g/dL (6.7-8.2)
[2020-06-15] MEDS: ACETAMINOPHEN 1,000 MG/100 ML 100 ML IV PRN (16:31)
--- NOTE | 2020-06-15 16:55 | PHARMACY PROGRESS NOTE ---
- Best Possible Medication History Admit Date and Time: 06/15/20 0646 Processed by: Pharmacy Medication History completed: Yes Patient Interview: Completed Secondary Source(s): Pharmacy records, Insurance records (PATIENT INTERVIEWED BY ENVIRONMENTAL PERMITTING SPECIALIST. PATIENT ABLE TO CONFIRM HOME MEDICATIONS. ) As the person ultimately responsible for medication therapy, providers are able to order a medication from an existing home medication list in [facility] via the "Reconcile Routine" prior to Confirmation of that medication by production support specialist. Such practice is discouraged except when the physician, in their clinical judgment, deems that a medical need exists for a medication without regard to previous use.
[2020-06-15] MEDS: SODIUM CHLORIDE FLUSH 0.9% 10 ML SYRINGE IVP SCH (18:33)
[2020-06-15] MEDS: ASPIRIN 325 MG TABLET PO SCH (18:33)
[2020-06-15] MEDS: KETOROLAC 15 MG/ML VIAL IVP PRN (18:33)
[2020-06-15] MEDS: SODIUM CHLORIDE 0.9% 1,000 ML IV SCH (18:34)
[2020-06-15] MEDS: CARBOXYMETHYLCELLULOSE OPHTH DROPS EACHEYE PRN (19:08)
[2020-06-15 21:08] LABS: HGB - HEMOGLOBIN 9.7 g/dL (14.0-18.0)
[2020-06-15] MEDS: CALCIUM CARBONATE CHEW 500 MG TABLET PO SCH (22:14)
[2020-06-15] MEDS: ceFAZolin 2 GM in SODIUM CHLORIDE 0.9% 100ML 100 ML IV SCH (22:15)
[2020-06-16] MEDS: KETOROLAC 15 MG/ML VIAL IVP PRN ×3 (02:07→15:45)
[2020-06-16] MEDS: CARBOXYMETHYLCELLULOSE OPHTH DROPS EACHEYE PRN (02:19)
[2020-06-16] MEDS: ACETAMINOPHEN 1,000 MG/100 ML 100 ML IV PRN (02:21)
[2020-06-16] MEDS: SODIUM CHLORIDE 0.9% 1,000 ML IV SCH (03:35)
[2020-06-16] MEDS: SODIUM CHLORIDE FLUSH 0.9% 10 ML SYRINGE IVP SCH ×3 (03:36→17:10)
[2020-06-16 05:19] LABS: BASOPHILS % (AUTO) 0.3 %; HGB - HEMOGLOBIN 8.5 g/dL (14.0-18.0); LYMPHOCYTES # (AUTO) 1.1 10^3/uL (1.5-3.5); LYMPHOCYTES % (AUTO) 14.5 %; MEAN CORPUSCULAR HEMOGLOBIN 29.9 pg (27.0-31.0); MEAN CORPUSCULAR HGB CONC 32.2 g/dL (32.0-36.0); MONOCYTES # (AUTO) 0.5 10^3/uL (0.0-1.0); MONOCYTES % (AUTO) 6.9 %; PLT - PLATELET COUNT 246 10^3/uL (130-450); RED BLOOD COUNT 2.84 10^6/uL (4.70-6.10); RED CELL DISTRIBUTION WIDTH 15.1 % (12.0-15.0); WHITE BLOOD COUNT 7.6 x10^3/uL (4.8-10.8)
[2020-06-16 05:27] LABS: CALCIUM 7.9 mg/dL (8.5-10.3); CREATININE 0.6 mg/dL (0.6-1.2)
[2020-06-16] MEDS: ceFAZolin 2 GM in SODIUM CHLORIDE 0.9% 100ML 100 ML IV SCH (06:47)
[2020-06-16] MEDS: PRENATAL VITAMIN TABLET PO SCH (09:02)
[2020-06-16] MEDS: FERROUS SULFATE 325 MG TABLET PO SCH (09:02)
[2020-06-16] MEDS: CHOLECALCIFEROL 400 UNIT TABLET PO SCH (09:02)
[2020-06-16] MEDS: ASPIRIN 325 MG TABLET PO SCH ×2 (09:02→17:10)
[2020-06-16] MEDS: CALCIUM CARBONATE CHEW 500 MG TABLET PO SCH ×2 (09:03→21:40)
[2020-06-16] MEDS: THIAMINE 100 MG TABLET PO SCH (09:04)
--- NOTE | 2020-06-16 09:22 | PROVIDER PROGRESS NOTE ---
Subjective - General Admit Date: 06/15/20 Procedure Date: 06/15/20 Post Op Days: 1 Procedure Performed: revision left hip to left total hip arthroplasty - Review of Systems Wound/Incisions: positive: Healing well, No drainage General: positive: No symptoms Musculoskeletal: positive: Other (pain is controlled with medication) Neurological: Psychiatric: positive: No symptoms - Other Other Information/Narrative: He is doing relatively well postop day 1. He is to obtain physical and occup ational therapy today.His pain threshold is altered from previous drug use. His nutrition needs to be optimized and this was discussed with him.He does have an anemia, not symptomatic. His anemia is probably related to some chronic disease as well as surgical blood loss. Objective - Patient Data Vital Signs: Vital Signs x48h Temp Pulse Resp BP Pulse Ox 06/16/20 08:00 37.1 C 75 129/81 H 98 06/16/20 04:00 36.6 C 67 16 114/64 100 Weight: Weight 06/14/20 06/15/20 06/16/20 23:59 23:59 23:59 Weight (kg) 53 kg Intake & Output: Intake and Output Totals x24h 06/14/20 06/15/20 06/16/20 23:59 23:59 23:59 Intake Total 1326 1560 Output Total 1595 825 Balance -269 735 - Lab Results Lab Results: 06/16/20 04:50 06/16/20 04:50 Other Lab Results: Lab Results x24hrs 06/16/20 06/16/20 06/15/20 Range/Units 04:50 04:50 21:03 WBC 7.6 (4.8-10.8) x10^3/uL RBC 2.84 L (4.70-6.10) 10^6/uL Hgb 8.5 L 9.7 L (14.0-18.0) g/dL Hct 26.4 L 29.8 L (42.0-52.0) % MCV 93.0 (80.0-94.0) fL MCH 29.9 (27.0-31.0) pg MCHC 32.2 (32.0-36.0) g/dL RDW 15.1 H (12.0-15.0) % Plt Count 246 (130-450) 10^3/uL MPV 9.0 (7.4-11.4) fL Neut # (Auto) 6.0 (1.5-6.6) 10^3/uL Lymph # (Auto) 1.1 L (1.5-3.5) 10^3/uL [place] # (Auto) 0.5 (0.0-1.0) 10^3/uL Eos # (Auto) 0.0 (0.0-0.7) 10^3/uL Baso # (Auto) 0.0 (0.0-0.1) 10^3/uL Absolute Nucleated RBC 0.00 x10^3/uL Nucleated RBC % 0.0 /100WBC Sodium 134 L (135-145) mmol/L Potassium 4.3 (3.5-5.0) mmol/L Chloride 102 (101-111) mmol/L Carbon Dioxide 26 (21-32) mmol/L Anion Gap 6.0 (6-13) BUN 15 (6-20) mg/dL Creatinine 0.6 (0.6-1.2) mg/dL Estimated GFR (MDRD) 136 (>89) Glucose 126 H (70-100) mg/dL Calcium 7.9 L (8.5-10.3) mg/dL Total Bilirubin (0.2-1.0) mg/dL AST (10-42) IU/L ALT (10-60) IU/L Alkaline Phosphatase (42-121) IU/L Total Protein (6.7-8.2) g/dL Albumin (3.2-5.5) g/dL Globulin (2.1-4.2) g/dL Albumin/Globulin Ratio (1.0-2.2) 06/15/20 Range/Units 15:54 WBC (4.8-10.8) x10^3/uL RBC (4.70-6.10) 10^6/uL Hgb (14.0-18.0) g/dL Hct (42.0-52.0) % MCV (80.0-94.0) fL MCH (27.0-31.0) pg MCHC (32.0-36.0) g/dL RDW (12.0-15.0) % Plt Count (130-450) 10^3/uL MPV (7.4-11.4) fL Neut # (Auto) (1.5-6.6) 10^3/uL Lymph # (Auto) (1.5-3.5) 10^3/uL [place] # (Auto) (0.0-1.0) 10^3/uL Eos # (Auto) (0.0-0.7) 10^3/uL Baso # (Auto) (0.0-0.1) 10^3/uL Absolute Nucleated RBC x10^3/uL Nucleated RBC % /100WBC Sodium 135 (135-145) mmol/L Potassium 4.3 (3.5-5.0) mmol/L Chloride 97 L (101-111) mmol/L Carbon Dioxide 21 (21-32) mmol/L Anion Gap 17.0 H (6-13) BUN 24 H (6-20) mg/dL Creatinine 1.1 (0.6-1.2) mg/dL Estimated GFR (MDRD) 68 L (>89) Glucose 150 H (70-100) mg/dL Calcium 8.3 L (8.5-10.3) mg/dL Total Bilirubin 0.9 (0.2-1.0) mg/dL AST 27 (10-42) IU/L ALT 14 (10-60) IU/L Alkaline Phosphatase 73 (42-121) IU/L Total Protein 6.5 L (6.7-8.2) g/dL Albumin 3.2 (3.2-5.5) g/dL Globulin 3.3 (2.1-4.2) g/dL Albumin/Globulin Ratio 1.0 (1.0-2.2) - Current Medications Current Medications: Current Medications Generic Name Dose Route Start Last Admin Trade Name Freq PRN Reason Stop Dose Admin Acetaminophen 650 - 975 mg 06/15/20 13:27 06/15/20 20:27 Tylenol PO 650 mg Q4HR PRN Administration PAIN Aspirin 325 mg 06/15/20 17:00 06/16/20 09:02 Lashay PO 325 mg BIDWM MARÍA Administration Calcium Carbonate/Glycine 500 mg 06/15/20 21:00 06/16/20 09:03 Tums PO 500 mg BID MARÍA Administration Carboxymethylcellulose 1 drops 06/15/20 18:27 06/16/20 02:19 Refresh 1% Ophth Drops EACHEYE 1 drops PRN PRN Administration Dry Eye Cholecalciferol 800 unit 06/16/20 09:00 06/16/20 09:02 Vitamin D3 PO 800 unit DAILY MARÍA Administration Ferrous Sulfate 325 mg 06/16/20 09:00 06/16/20 09:02 Feosol PO 325 mg DAILY MARÍA Administration Acetaminophen 100 mls @ 400 mls/hr 06/15/20 13:27 06/16/20 02:36 Ofirmev IV Infused Q6HR PRN Infusion PAIN Sodium Chloride 1,000 mls @ 83.333 mls/hr 06/15/20 19:00 06/16/20 03:35 Normal Saline 0.9% IV 06/16/20 18:59 83.333 mls/hr .Q12H MARÍA Administration Ketorolac Tromethamine 15 mg 06/15/20 18:05 06/16/20 09:03 Toradol Inj (15mg) IVP 06/20/20 18:04 15 mg Q6HR PRN Administration PAIN Multivit/Folic Acid/Iron 1 tab 06/16/20 08:00 06/16/20 09:02 Trinatal Rx 1 PO 1 tab DAILYWM MARÍA Administration Sodium Chloride 10 ml 06/15/20 17:00 06/16/20 09:05 Normal Saline Flush 0.9% IVP Not Given 0100,0900,1700 MARÍA Thiamine HCl 100 mg 06/16/20 09:00 06/16/20 09:04 Vitamin B-1 PO 100 mg DAILY MARÍA Administration Impression/Plan - Problem List Problem List: Status post left total hip arthroplasty he is making good progress And is to receive physical and occupational therapy. If he meets his goals, he can be discharged. Good nutrition was discussed with him, fall prevention and hip dislocation precautions.
[2020-06-16] MEDS: ACETAMINOPHEN 325 MG TABLET PO PRN ×2 (10:44→21:40)
--- NOTE | 2020-06-16 14:26 | PROVIDER PROGRESS NOTE ---
Assessment/Plan - Problem List (1) Status post left hip replacement Assessment/Plan: 1, status post of left total hip arthroplasty day one. pt is doing well, but feel a little dizziness, it is likely caused by his significant anemia. today his HGB is 8.5 from 14.7 at admission. will continue PT/OT, pain control, aspirin for DVT Prophylaxis. 2, anemia, today his HGB is 8.5 from 14.7 at admission, Patient just had a surgery, acute blood loss. 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 resume home and vitamin B-1 5, Per surgeon suggestion patient is likely to have osteoporosis, Add calcium carbonate and vitamin D3 for patient - Current Meds Current Meds: Current Medications Generic Name Dose Route Start Last Admin Trade Name Freq PRN Reason Stop Dose Admin Acetaminophen 650 - 975 mg 06/15/20 13:27 06/16/20 10:44 Tylenol PO 650 mg Q4HR PRN Administration PAIN Aspirin 325 mg 06/15/20 17:00 06/16/20 09:02 Lashay PO 325 mg BIDWM MARÍA Administration Calcium Carbonate/Glycine 500 mg 06/15/20 21:00 06/16/20 09:03 Tums PO 500 mg BID MARÍA Administration Carboxymethylcellulose 1 drops 06/15/20 18:27 06/16/20 02:19 Refresh 1% Ophth Drops EACHEYE 1 drops PRN PRN Administration Dry Eye Cholecalciferol 800 unit 06/16/20 09:00 06/16/20 09:02 Vitamin D3 PO 800 unit DAILY MARÍA Administration Ferrous Sulfate 325 mg 06/16/20 09:00 06/16/20 09:02 Feosol PO 325 mg DAILY MARÍA Administration Acetaminophen 100 mls @ 400 mls/hr 06/15/20 13:27 06/16/20 02:36 Ofirmev IV Infused Q6HR PRN Infusion PAIN Ketorolac Tromethamine 15 mg 06/15/20 18:05 06/16/20 09:03 Toradol Inj (15mg) IVP 06/20/20 18:04 15 mg Q6HR PRN Administration PAIN Multivit/Folic Acid/Iron 1 tab 06/16/20 08:00 06/16/20 09:02 Trinatal Rx 1 PO 1 tab DAILYWM MARÍA Administration Sodium Chloride 10 ml 06/15/20 17:00 06/16/20 09:05 Normal Saline Flush 0.9% IVP Not Given 0100,0900,1700 MARÍA Thiamine HCl 100 mg 06/16/20 09:00 06/16/20 09:04 Vitamin B-1 PO 100 mg DAILY MARÍA Administration - Lab Result Fish Bone Diagrams: 06/16/20 12:22 06/16/20 04:50 - Additional Planning My Orders: My Active Orders 06/15/20 18:05 Ketorolac Inj (15Mg) [Toradol Inj (15Mg)] 15 mg IVP Q6HR PRN 06/15/20 18:11 Nutrition Consult [CONS] Routine 06/15/20 21:00 Calcium Carbonate [Tums] 500 mg PO BID 06/16/20 08:00 Vitamin [Trinatal Rx 1] 1 tab PO DAILYWM 06/16/20 09:00 Cholecalciferol [Vitamin D3] 800 unit PO DAILY Ferrous Sulfate [Feosol] 325 mg PO DAILY Thiamine [Vitamin B-1] 100 mg PO DAILY 06/16/20 21:00 H&H [HEMOGLOBIN AND HEMATOCRIT] [HEME] Timed 06/17/20 05:00 BMP - BASIC METABOLIC PANEL [CHEM] DAILYLAB CBC - COMP BLD CT W/AUTO DIFF [HEME] DAILYLAB 06/18/20 05:00 BMP - BASIC METABOLIC PANEL [CHEM] DAILYLAB CBC - COMP BLD CT W/AUTO DIFF [HEME] DAILYLAB 06/19/20 05:00 BMP - BASIC METABOLIC PANEL [CHEM] DAILYLAB CBC - COMP BLD CT W/AUTO DIFF [HEME] DAILYLAB 06/20/20 05:00 BMP - BASIC METABOLIC PANEL [CHEM] DAILYLAB CBC - COMP BLD CT W/AUTO DIFF [HEME] DAILYLAB Subjective - Subjective Patient Reports: Feeling Better Objective Vital Signs: Vital Signs - 24 hr 06/15/20 06/15/20 06/15/20 14:40 15:08 16:00 Temperature 36.5 C 36.5 C 36.9 C Heart Rate 91 Heart Rate [ 91 79 Brachial] Heart Rate [ Sitting] Heart Rate [ Supine] Respiratory 14 14 16 Rate Blood Pressure 107/70 124/75 [Right Brachial artery] Blood Pressure [Sitting] Blood Pressure [Supine] O2 Saturation 98 96 100 06/15/20 06/16/20 06/16/20 20:00 00:00 04:00 Temperature 36.5 C 36.4 C L 36.6 C Heart Rate Heart Rate [ 72 65 67 Brachial] Heart Rate [ Sitting] Heart Rate [ Supine] Respiratory 16 16 16 Rate Blood Pressure 105/69 113/62 114/64 [Right Brachial artery] Blood Pressure [Sitting] Blood Pressure [Supine] O2 Saturation 100 97 100 06/16/20 06/16/20 06/16/20 08:00 11:10 11:15 Temperature 37.1 C Heart Rate Heart Rate [ 75 Brachial] Heart Rate [ 86 86 Sitting] Heart Rate [ 84 84 Supine] Respiratory Rate Blood Pressure 129/81 H [Right Brachial artery] Blood Pressure 121/83 H 121/83 H [Sitting] Blood Pressure 124/71 124/71 [Supine] O2 Saturation 98 06/16/20 12:00 Temperature 36.6 C Heart Rate Heart Rate [ 90 Brachial] Heart Rate [ Sitting] Heart Rate [ Supine] Respiratory Rate Blood Pressure 113/72 [Right Brachial artery] Blood Pressure [Sitting] Blood Pressure [Supine] O2 Saturation 95 Oxygen O2 Source Room air I&O (Last 24 Hrs): Intake and Output Totals x24h 06/14/20 06/15/20 06/16/20 23:59 23:59 23:59 Intake Total 1326 1680 Output Total 1595 825 Balance -269 855 General: Alert, Oriented x3, No acute distress HEENT: Atraumatic Neck: Supple Lymphatic: no adenopathy Neuro: Alert, Non Focal, Oriented Times 3 Cardiovascular: Regular rate, Normal S1, Normal S2 Respiratory: Chest non-tender, No respiratory distress Abdomen: Normal bowel sounds, Soft, No tenderness Extremities: Normal pulses - Results Results: Laboratory Results WBC 7.6 x10^3/uL (4.8-10.8) 06/16/20 04:50 RBC 2.84 10^6/uL (4.70-6.10) L 06/16/20 04:50 Hgb 9.0 g/dL (14.0-18.0) L 06/16/20 12:22 Hct 28.0 % (42.0-52.0) L 06/16/20 12:22 MCV 93.0 fL (80.0-94.0) 06/16/20 04:50 MCH 29.9 pg (27.0-31.0) 06/16/20 04:50 MCHC 32.2 g/dL (32.0-36.0) 06/16/20 04:50 RDW 15.1 % (12.0-15.0) H 06/16/20 04:50 Plt Count 246 10^3/uL (130-450) 06/16/20 04:50 MPV 9.0 fL (7.4-11.4) 06/16/20 04:50 Neut # (Auto) 6.0 10^3/uL (1.5-6.6) 06/16/20 04:50 Lymph # (Auto) 1.1 10^3/uL (1.5-3.5) L 06/16/20 04:50 [place] # (Auto) 0.5 10^3/uL (0.0-1.0) 06/16/20 04:50 Eos # (Auto) 0.0 10^3/uL (0.0-0.7) 06/16/20 04:50 Baso # (Auto) 0.0 10^3/uL (0.0-0.1) 06/16/20 04:50 Absolute Nucleated RBC 0.00 x10^3/uL 06/16/20 04:50 Nucleated RBC % 0.0 /100WBC 06/16/20 04:50 Sodium 134 mmol/L (135-145) L 06/16/20 04:50 Potassium 4.3 mmol/L (3.5-5.0) 06/16/20 04:50 Chloride 102 mmol/L (101-111) 06/16/20 04:50 Carbon Dioxide 26 mmol/L (21-32) 06/16/20 04:50 Anion Gap 6.0 (6-13) 06/16/20 04:50 BUN 15 mg/dL (6-20) 06/16/20 04:50 Creatinine 0.6 mg/dL (0.6-1.2) 06/16/20 04:50 Estimated GFR (MDRD) 136 (>89) 06/16/20 04:50 Glucose 126 mg/dL (70-100) H 06/16/20 04:50 Calcium 7.9 mg/dL (8.5-10.3) L 06/16/20 04:50 Total Bilirubin 0.9 mg/dL (0.2-1.0) 06/15/20 15:54 AST 27 IU/L (10-42) 06/15/20 15:54 ALT 14 IU/L (10-60) 06/15/20 15:54 Alkaline Phosphatase 73 IU/L (42-121) 06/15/20 15:54 Total Protein 6.5 g/dL (6.7-8.2) L 06/15/20 15:54 Albumin 3.2 g/dL (3.2-5.5) 06/15/20 15:54 Globulin 3.3 g/dL (2.1-4.2) 06/15/20 15:54 Albumin/Globulin Ratio 1.0 (1.0-2.2) 06/15/20 15:54 Folate 13.92 ng/mL (5.90 - >24.8) 06/16/20 04:50 - Procedures Procedures: Procedures REPOSITION LEFT UPPER FEMUR WITH INTRAMED FIX, OPEN APPROACH (05/18/20) SUPPLEMENT L INGUINAL REGION WITH SYNTH SUB, OPEN APPROACH (10/07/19) ABX Reporting Has patient been on IV antibiotics over the past 48 hours?: No Current Medications - Current Medications Current Medications: Active Medications Acetaminophen (Tylenol) 650 - 975 mg PO Q4HR PRN PRN Reason: PAIN Last Admin: 06/16/20 10:44 Dose: 650 mg Documented by: Aspirin (Lashay) 325 mg PO BIDWM [facility] Last Admin: 06/16/20 09:02 Dose: 325 mg Documented by: Calcium Carbonate/Glycine (Tums) 500 mg PO BID [facility] Last Admin: 06/16/20 09:03 Dose: 500 mg Documented by: Carboxymethylcellulose (Refresh 1% Ophth Drops) 1 drops EACHEYE PRN PRN PRN Reason: Dry Eye Last Admin: 06/16/20 02:19 Dose: 1 drops Documented by: Cholecalciferol (Vitamin D3) 800 unit PO DAILY [facility] Last Admin: 06/16/20 09:02 Dose: 800 unit Documented by: Ferrous Sulfate (Feosol) 325 mg PO DAILY [facility] Last Admin: 06/16/20 09:02 Dose: 325 mg Documented by: Acetaminophen (Ofirmev) 100 mls @ 400 mls/hr IV Q6HR PRN PRN Reason: PAIN Last Infusion: 06/16/20 02:36 Dose: Infused Documented by: Ketorolac Tromethamine (Toradol Inj (15mg)) 15 mg IVP Q6HR PRN PRN Reason: PAIN Stop: 06/20/20 18:04 Last Admin: 06/16/20 09:03 Dose: 15 mg Documented by: Ondansetron HCl (Zofran Inj) 4 mg IVP Q6HR PRN PRN Reason: Nausea / Vomiting Oxycodone HCl (Roxicodone) 5 mg PO Q4HR PRN PRN Reason: PAIN >8 Multivit/Folic Acid/Iron (Trinatal Rx 1) 1 tab PO DAILYWM [facility] Last Admin: 06/16/20 09:02 Dose: 1 tab Documented by: Sodium Chloride (Normal Saline Flush 0.9%) 10 ml IVP 0100,0900,1700 [facility] Last Admin: 06/16/20 09:05 Dose: Not Given Documented by: Sodium Chloride (Normal Saline Flush 0.9%) 10 ml IVP PRN PRN PRN Reason: NEEDED PER PROVIDER ORDERS Thiamine HCl (Vitamin B-1) 100 mg PO DAILY [facility] Last Admin: 06/16/20 09:04 Dose: 100 mg Documented by: Acetaminophen [Tylenol] 650 mg PO Q6H PRN 06/13/20
[2020-06-16 14:41] LABS: ABSOLUTE RETICS # AUTO 0.036 10^6/uL (0.020-0.110); RED BLOOD COUNT 3.01 10^6/uL (4.70-6.10)
[2020-06-16 15:00] LABS: % IRON SATURATION 14 % (20-50); IRON 24 ug/dL (45-182); TOTAL IRON BINDING CAPACITY 174 ug/dL (250-450); TRANSFERRIN 124 mg/dL (180-329)
[2020-06-16 15:39] LABS: FERRITIN 370.3 ng/mL (23.9-336.2)
[2020-06-16 20:59] LABS: HGB - HEMOGLOBIN 7.5 g/dL (14.0-18.0)
[2020-06-17] MEDS: KETOROLAC 15 MG/ML VIAL IVP PRN ×3 (00:41→13:28)
[2020-06-17] MEDS: SODIUM CHLORIDE FLUSH 0.9% 10 ML SYRINGE IVP SCH ×2 (00:42→07:56)
[2020-06-17] MEDS: ACETAMINOPHEN 1,000 MG/100 ML 100 ML IV PRN (03:26)
[2020-06-17] MEDS: SODIUM CHLORIDE FLUSH 0.9% 10 ML SYRINGE IVP PRN ×2 (03:29→13:29)
[2020-06-17 05:46] LABS: BASOPHILS % (AUTO) 0.4 %; EOSINOPHILS # (AUTO) 0.1 10^3/uL (0.0-0.7); EOSINOPHILS % (AUTO) 0.7 %; HGB - HEMOGLOBIN 8.5 g/dL (14.0-18.0); LYMPHOCYTES # (AUTO) 1.4 10^3/uL (1.5-3.5); LYMPHOCYTES % (AUTO) 20.7 %; MEAN CORPUSCULAR HEMOGLOBIN 29.5 pg (27.0-31.0); MEAN CORPUSCULAR HGB CONC 31.3 g/dL (32.0-36.0); MEAN CORPUSCULAR VOLUME 94.4 fL (80.0-94.0); MEAN PLATELET VOLUME 8.9 fL (7.4-11.4); MONOCYTES # (AUTO) 0.4 10^3/uL (0.0-1.0); MONOCYTES % (AUTO) 5.8 %; NEUTROPHILS # (AUTO) 4.8 10^3/uL (1.5-6.6); NEUTROPHILS % (AUTO) 72.1 %; PLT - PLATELET COUNT 241 10^3/uL (130-450); RED BLOOD COUNT 2.88 10^6/uL (4.70-6.10); RED CELL DISTRIBUTION WIDTH 15.9 % (12.0-15.0); WHITE BLOOD COUNT 6.7 x10^3/uL (4.8-10.8)
[2020-06-17 05:57] LABS: CALCIUM 7.8 mg/dL (8.5-10.3); CREATININE 0.5 mg/dL (0.6-1.2)
--- NOTE | 2020-06-17 07:37 | DISCHARGE SUMMARY ---
"Discharge Summary Admit Date: 06/15/20 Discharge Date: 06/17/20 Discharging Provider: Elan SOMMERS Code Status: Attempt Resuscitation Condition at Discharge: Good Discharge Disposition: 01 Home, Self Care - DIAGNOSES Admission Diagnoses: Left femoral neck fracture with complication of internal fix fixation and conversion to total hip replacement left hip Discharge Diagnoses with Status of Each Condition: Postop anemia with stable H&H - HPI History of Present Illness: Patient is a 64-year-old male who had a femoral neck fracture With ORIF a few weeks ago with hardware failure brought in for removal of failed hardware and conversion to a total left hip replacement. Patient had some postop anemia that has since increased and stabilized. - CONSULTS | PROCEDURES Consultations: Hospitalist - HOSPITAL COURSE Hospital Course: After surgery patient's vital signs and labs were followed. Patient received multiple courses of physical therapy and is progressing well.Incision is clean and dry with no drainage. - ALLERGIES Allergies/Adverse Reactions: Allergies Allergy/AdvReac Type Severity Reaction Status Date / Time ibuprofen Allergy Hives Verified 10/07/19 14:52 - MEDICATIONS Home Medications: Ambulatory Orders Medication Instructions Recorded Confirmed Ferrous Sulfate [Feosol] 325 mg PO DAILY #30 tablet 05/20/20 06/15/20 Vitamin [Trinatal Rx 1] 1 tab PO DAILYWM #30 tablet 05/20/20 06/15/20 Thiamine [Vitamin B-1] 100 mg PO DAILY #30 tablet 05/20/20 06/15/20 Acetaminophen [Tylenol] 650 mg PO Q6H PRN 06/13/20 06/15/20 oxyCODONE [Roxicodone] 5 mg PO Q4-6H #20 tablet 06/17/20 Home Medications Other | Comments: Aspirin 81 mg twice daily for 6 weeks - PHYSICAL EXAM AT DISCHARGE General Appearance: positive: No acute distress Skin: positive: Warm, Dry Neurologic/Psychiatric: positive: Oriented x3 Physical Exam Other/Comments: Patient is neurovascularly intact in his lower left him and hip. Patient has some point tenderness over the incision site. The dressing is clean and dry with no evidence of drainage. Patient has been able to get up out of bed to bathroom and to chair. - LABS Result Diagrams: 06/17/20 05:26 06/17/20 05:26 - DIAGNOSTIC IMAGING Diagnostic Imaging Results: Prelim report reviewed - SEPSIS Current Stage of Sepsis: Ruled out - QUALITY (Female Hip Fx Only) Was patient sent home on osteoporosis medication?: No - FOLLOW UP Follow Up: Patient is scheduled to return to clinic in 1 week's time - TIME SPENT Time Spent in Discharge (Minutes): 15"
[2020-06-17] MEDS: PRENATAL VITAMIN TABLET PO SCH (07:56)
[2020-06-17] MEDS: ASPIRIN 325 MG TABLET PO SCH (07:56)
[2020-06-17] MEDS ORDERED: polyethylene glycoL 3350 17 GM PACKET PO SCH (09:00)
[2020-06-17] MEDS: CALCIUM CARBONATE CHEW 500 MG TABLET PO SCH (09:25)
[2020-06-17] MEDS: FERROUS SULFATE 325 MG TABLET PO SCH (09:25)
[2020-06-17] MEDS: CHOLECALCIFEROL 400 UNIT TABLET PO SCH (09:25)
[2020-06-17] MEDS: THIAMINE 100 MG TABLET PO SCH (09:25)
[2020-06-17] MEDS: ACETAMINOPHEN 325 MG TABLET PO PRN (11:41)
--- NOTE | 2020-06-17 12:25 | Discharge Plan ---
Discharge Plan Problem Reviewed?: Yes Disposition: Home, Self Care Prescriptions: oxyCODONE [Roxicodone] 5 mg PO Q4-6H #20 tablet Diet: Regular Activity Restrictions: Activity as Tolerated Shower Restrictions: No Driving Restrictions: Yes Assistance Devices: Walker Weight Bearing: Partial Weight Plan of Treatment: Dressing changes and PT Additional Instructions or Follow Up instructions: Weightbearing as tolerated, ambulate as much as pain tolerates. May shower. Dressing change to be done at clinic which she will return to in approximately 1 week. No Smoking: If you smoke, Please STOP! Call for help. Follow-up with: Camilo Pike PA-C [Provider Admit Priv/Credential] -
[2020-06-17 13:26] VITALS: BP 132/73
== END 2020-06-17 13:39 | disposition home or self-care (01) | DRG 908 ==
LOC: MS2 06:46 → ICU 09:16 → MS2 13:47
PROVIDERS: ADMIT Orthopaedic Surgery; ATTEND Orthopaedic Surgery
PROC: 0QP704Z Removal of Internal Fixation Device from Left Upper Femur, Open Approach (ICD-10-PCS; 2020-06-15)
PROC: 0SRB01Z Replacement of Left Hip Joint with Metal Synthetic Substitute, Open Approach (ICD-10-PCS; principal; 2020-06-15 08:45)
DX: T85.698A Other mechanical complication of other specified internal prosthetic devices, implants and grafts, initial encounter (principal); S72.002K Fracture of unspecified part of neck of left femur, subsequent encounter for closed fracture with nonunion; D62 Acute posthemorrhagic anemia; Y79.2 Prosthetic and other implants, materials and accessory orthopedic devices associated with adverse incidents; M06.9 Rheumatoid arthritis, unspecified; W19.XXXD Unspecified fall, subsequent encounter; F10.20 Alcohol dependence, uncomplicated; G89.29 Other chronic pain; M54.9 Dorsalgia, unspecified; M81.0 Age-related osteoporosis without current pathological fracture; M06.89 Other specified rheumatoid arthritis, multiple sites; F17.200 Nicotine dependence, unspecified, uncomplicated; H54.7 Unspecified visual loss; W19.XXXA Unspecified fall, initial encounter; Z79.899 Other long term (current) drug therapy
CPT/HCPCS: 36415; 73501; 80048; 80053; 82607; 82728; 82746; 83540; 84466; 85014; 85018; 85025; 85045; 97116; 97161; 97165; 97530; A9270; J0131; J0690; J2795; J7120; 83615

== ENCOUNTER 2020-08-25 09:44 | Outpatient (CLI) | payer MEDICAID ==
--- NOTE | 2020-08-25 12:38 | XRAY Report ---
PROCEDURE: Hips 2V BILAT INDICATIONS: COMPLICATION OF INTERNAL FIXATION DEVICE TECHNIQUE: 4 views of the hip were acquired. COMPARISON: 06/15/2020, 05/27/2020 FINDINGS: Bones: AP view of the pelvis and 3 views of the left hip were performed. The patient is status post t otal left hip replacement. There is no pericardial hardware lucency or pericardial hardware fracture. The right hip has degenerative changes with joint space narrowing and subchondral sclerosis. Soft tissues: No suspicious soft tissue calcifications or masses. IMPRESSION: 1. Postoperative changes of total left hip replacement without radiographic complication. 2. Degenerative changes of the right hip consistent with osteoarthritis. Reviewed by: Margarito Sweet on 08/25/2020 12:37 PM PST Approved by: Margarito Sweet on 08/25/2020 12:37 PM PST Station ID: [id number]
--- NOTE | 2020-08-25 12:46 | XRAY Report ---
PROCEDURE: Femur 2V LT INDICATIONS: COMPLICATION OF INTERNAL FIXATION DEVICE TECHNIQUE: 4 views of the femur were acquired. COMPARISON: None. FINDINGS: Bones: 4 views of the left hip were performed. The patient is status post total left hip replacement. There is no pericardial hardware lucency or pericardial hardware fracture. The left knee has degener ative changes. Soft tissues: No suspicious soft tissue calcifications or masses. IMPRESSION: Postoperative changes of total left hip replacement without radiographic complication Reviewed by: Margarito Sweet on 08/25/2020 12:44 PM PST Approved by: Margarito Sweet on 08/25/2020 12:44 PM PST Station ID: [id number]
== END 2020-08-25 23:59 | disposition home or self-care (01) ==
LOC: DI.N 09:44
PROVIDERS: ATTEND Orthopaedic Surgery
DX: M16.11 Unilateral primary osteoarthritis, right hip (principal); Z96.642 Presence of left artificial hip joint
CPT/HCPCS: 73521

== ENCOUNTER 2020-10-17 13:58 | Outpatient (CLI) | payer MEDICAID ==
[2020-10-17 20:41] LABS: BASOPHILS % (AUTO) 0.5 %; EOSINOPHILS # (AUTO) 0.1 10^3/uL (0.0-0.7); EOSINOPHILS % (AUTO) 1.7 %; HGB - HEMOGLOBIN 14.2 g/dL (14.0-18.0); LYMPHOCYTES # (AUTO) 2.2 10^3/uL (1.5-3.5); LYMPHOCYTES % (AUTO) 29.8 %; MEAN CORPUSCULAR HEMOGLOBIN 31.1 pg (27.0-31.0); MEAN CORPUSCULAR HGB CONC 31.6 g/dL (32.0-36.0); MEAN CORPUSCULAR VOLUME 98.2 fL (80.0-94.0); MEAN PLATELET VOLUME 10.5 fL (7.4-11.4); MONOCYTES # (AUTO) 0.4 10^3/uL (0.0-1.0); MONOCYTES % (AUTO) 5.7 %; NEUTROPHILS # (AUTO) 4.6 10^3/uL (1.5-6.6); NEUTROPHILS % (AUTO) 61.9 %; PLT - PLATELET COUNT 302 10^3/uL (130-450); RED BLOOD COUNT 4.57 10^6/uL (4.70-6.10); RED CELL DISTRIBUTION WIDTH 17.5 % (12.0-15.0); WHITE BLOOD COUNT 7.5 x10^3/uL (4.8-10.8)
[2020-10-17 21:00] LABS: ALBUMIN/GLOBULIN RATIO 1.5 (1.0-2.2); ALKALINE PHOSPHATASE 59 IU/L (42-121); ALT ALANINE AMINOTRANSFERASE 15 IU/L (10-60); AST ASPARTATE AMINOTRANSFERASE 15 IU/L (10-42); BILIRUBIN,TOTAL 0.7 mg/dL (0.2-1.0); BUN - BLOOD UREA NITROGEN 14 mg/dL (6-20); CALCIUM 8.6 mg/dL (8.5-10.3); CARBON DIOXIDE - CO2 26 mmol/L (21-32); CHLORIDE 104 mmol/L (101-111); CREATININE 0.6 mg/dL (0.6-1.2); GLUCOSE 91 mg/dL (70-100); SODIUM 139 mmol/L (135-145); TOTAL PROTEIN 6.7 g/dL (6.7-8.2)
[2020-10-17 21:06] LABS: CRP - C-REACTIVE PROTEIN < 1.0 mg/dL (0-1.0)
== END 2020-10-17 13:59 | disposition home or self-care (01) ==
LOC: LAB.S 13:58
PROVIDERS: ATTEND Internal Medicine Rheumatology
DX: M05.79 Rheumatoid arthritis with rheumatoid factor of multiple sites without organ or systems involvement (principal)
CPT/HCPCS: 36415; 80053; 85025; 85651; 86140

== ENCOUNTER 2021-01-26 12:26 | Outpatient (CLI) | payer MEDICAID ==
[2021-01-26 15:15] LABS: BASOPHILS % (AUTO) 0.4 %; EOSINOPHILS % (AUTO) 0.4 %; HCT - HEMATOCRIT 44.6 % (42.0-52.0); HGB - HEMOGLOBIN 14.6 g/dL (14.0-18.0); LYMPHOCYTES # (AUTO) 0.9 10^3/uL (1.5-3.5); LYMPHOCYTES % (AUTO) 17.5 %; MEAN CORPUSCULAR HGB CONC 32.7 g/dL (32.0-36.0); MEAN CORPUSCULAR VOLUME 103.7 fL (80.0-94.0); MEAN PLATELET VOLUME 9.9 fL (7.4-11.4); MONOCYTES # (AUTO) 0.2 10^3/uL (0.0-1.0); MONOCYTES % (AUTO) 3.5 %; NEUTROPHILS # (AUTO) 3.8 10^3/uL (1.5-6.6); NEUTROPHILS % (AUTO) 77.8 %; PLT - PLATELET COUNT 268 10^3/uL (130-450); RED CELL DISTRIBUTION WIDTH 14.1 % (12.0-15.0); WHITE BLOOD COUNT 4.9 x10^3/uL (4.8-10.8)
[2021-01-26 15:41] LABS: ALBUMIN 4.2 g/dL (3.2-5.5); ALBUMIN/GLOBULIN RATIO 1.5 (1.0-2.2); ALKALINE PHOSPHATASE 48 IU/L (42-121); ALT ALANINE AMINOTRANSFERASE 20 IU/L (10-60); AST ASPARTATE AMINOTRANSFERASE 18 IU/L (10-42); BILIRUBIN,TOTAL 0.8 mg/dL (0.2-1.0); BUN - BLOOD UREA NITROGEN 17 mg/dL (6-20); CALCIUM 9.2 mg/dL (8.5-10.3); CARBON DIOXIDE - CO2 27 mmol/L (21-32); CHLORIDE 104 mmol/L (101-111); CREATININE 0.6 mg/dL (0.6-1.2); GFR - MDRD 136 (>89); GLUCOSE 109 mg/dL (70-100); POTASSIUM 4.3 mmol/L (3.5-5.0); SODIUM 138 mmol/L (135-145)
[2021-01-26 15:42] LABS: CRP - C-REACTIVE PROTEIN < 1.0 mg/dL (0-1.0)
== END 2021-01-26 12:27 | disposition home or self-care (01) ==
LOC: LAB.S 12:26
PROVIDERS: ATTEND Internal Medicine Rheumatology
DX: M05.79 Rheumatoid arthritis with rheumatoid factor of multiple sites without organ or systems involvement (principal)
CPT/HCPCS: 36415; 80053; 85025; 85651; 86140

== ENCOUNTER 2021-08-31 07:26 | Outpatient (CLI) | payer MEDICAID ==
--- NOTE | 2021-08-31 15:26 | XRAY Report ---
PROCEDURE: Hip w/Pelvis 2-3V LT INDICATIONS: POST OP TECHNIQUE: AP pelvis with lateral view(s) of the left hip(s). COMPARISON: 08/25/2020. FINDINGS: Bones: Patient is status post left total hip arthroplasty with anatomic left hip alignment. No fract ures or dislocations. No gross hardware loosening or failure. Pelvic ring appears intact. Right hip joint osteoarthritic changes are seen. No suspicious bony lesions. Soft tissues: The visualized bowel gas pattern is normal. No suspicious soft tissue calcifications. IMPRESSION: Stable and anatomic left hip alignment. No acute fracture or dislocation. No gross hardwa re complication. Reviewed by: Randy Castellanos MD on 08/31/2021 3:25 PM PST Approved by: Randy Castellanos MD on 08/31/2021 3:25 PM PST Station ID: [id number]
== END 2021-08-31 23:59 | disposition home or self-care (01) ==
LOC: DI.N 07:26
PROVIDERS: ATTEND Orthopaedic Surgery
DX: M84.452A Pathological fracture, left femur, initial encounter for fracture (principal)

== ENCOUNTER 2022-11-15 11:41 | Outpatient (CLI) | payer MEDICARE ==
[2022-11-15 14:56] LABS: BASOPHILS % (AUTO) 0.4 %; EOSINOPHILS % (AUTO) 0.7 %; HCT - HEMATOCRIT 44.9 % (42.0-52.0); HGB - HEMOGLOBIN 14.7 g/dL (14.0-18.0); LYMPHOCYTES # (AUTO) 0.8 10^3/uL (1.5-3.5); LYMPHOCYTES % (AUTO) 15.3 %; MEAN CORPUSCULAR HGB CONC 32.7 g/dL (32.0-36.0); MEAN CORPUSCULAR VOLUME 103.9 fL (80.0-94.0); MEAN PLATELET VOLUME 9.6 fL (7.4-11.4); MONOCYTES # (AUTO) 0.4 10^3/uL (0.0-1.0); MONOCYTES % (AUTO) 6.5 %; NEUTROPHILS # (AUTO) 4.1 10^3/uL (1.5-6.6); NEUTROPHILS % (AUTO) 76.4 %; PLT - PLATELET COUNT 256 10^3/uL (130-450); RED BLOOD COUNT 4.32 10^6/uL (4.70-6.10); RED CELL DISTRIBUTION WIDTH 13.8 % (12.0-15.0); WHITE BLOOD COUNT 5.4 x10^3/uL (4.8-10.8)
[2022-11-15 15:20] LABS: ALBUMIN 4.1 g/dL (3.2-5.5); ALBUMIN/GLOBULIN RATIO 1.5 (1.0-2.2); ALKALINE PHOSPHATASE 46 IU/L (42-121); ALT ALANINE AMINOTRANSFERASE 34 IU/L (10-60); AST ASPARTATE AMINOTRANSFERASE 21 IU/L (10-42); BILIRUBIN,TOTAL 0.8 mg/dL (0.2-1.0); BUN - BLOOD UREA NITROGEN 12 mg/dL (6-20); CALCIUM 9.3 mg/dL (8.5-10.3); CARBON DIOXIDE - CO2 28 mmol/L (21-32); CHLORIDE 105 mmol/L (101-111); CREATININE 0.7 mg/dL (0.6-1.2); GFR - MDRD 113 (>89); GLUCOSE 113 mg/dL (70-100); POTASSIUM 3.9 mmol/L (3.5-5.0); SODIUM 142 mmol/L (135-145); TOTAL PROTEIN 6.8 g/dL (6.7-8.2)
[2022-11-15 15:22] LABS: CRP - C-REACTIVE PROTEIN < 1.0 mg/dL (0-1.0)
[2022-11-15 15:37] LABS: CHOL/HDL RATIO 2.4 (<5.0); CHOLESTEROL 216 mg/dL; HDL CHOLESTEROL 90 mg/dL; LDL CHOLESTEROL,CALCULATED 116 mg/dL; LDL/HDL RATIO 1.3 (<3.6); TRIGLYCERIDES 48 mg/dL; VLDL CHOLESTEROL 10 mg/dL
[2022-11-17 05:10] LABS: HIV SCREEN 4TH GENERATION Non Reactive (Non Reactive)
[2022-11-17 06:09] LABS: HCV AB <0.1 s/co ratio (0.0-0.9)
== END 2022-11-15 11:42 | disposition home or self-care (01) ==
LOC: LAB.S 11:41
PROVIDERS: ATTEND Nurse Practitioner Acute Care
DX: M05.79 Rheumatoid arthritis with rheumatoid factor of multiple sites without organ or systems involvement (principal); Z13.228 Encounter for screening for other metabolic disorders; Z13.220 Encounter for screening for lipoid disorders; Z13.0 Encounter for screening for diseases of the blood and blood-forming organs and certain disorders involving the immune mechanism; Z11.59 Encounter for screening for other viral diseases; Z11.4 Encounter for screening for human immunodeficiency virus [HIV]
CPT/HCPCS: 36415; 80053; 80061; 83520; 85025; 85651; 86140; 86803; G0475; 81599; 83721; 87389

== ENCOUNTER 2024-02-21 10:05 | Outpatient (CLI) | payer MEDICARE ==
[2024-02-21 15:11] LABS: BASOPHILS % (AUTO) 0.8 %; EOSINOPHILS # (AUTO) 0.1 10^3/uL (0.0-0.7); EOSINOPHILS % (AUTO) 1.4 %; HCT - HEMATOCRIT 42.6 % (42.0-52.0); HGB - HEMOGLOBIN 13.5 g/dL (14.0-18.0); LYMPHOCYTES # (AUTO) 0.8 10^3/uL (1.5-3.5); LYMPHOCYTES % (AUTO) 17.2 %; MEAN CORPUSCULAR HEMOGLOBIN 33.8 pg (27.0-31.0); MEAN CORPUSCULAR HGB CONC 31.7 g/dL (32.0-36.0); MEAN CORPUSCULAR VOLUME 106.5 fL (80.0-94.0); MEAN PLATELET VOLUME 9.5 fL (7.4-11.4); MONOCYTES # (AUTO) 0.5 10^3/uL (0.0-1.0); MONOCYTES % (AUTO) 10.2 %; NEUTROPHILS # (AUTO) 3.4 10^3/uL (1.5-6.6); NEUTROPHILS % (AUTO) 69.8 %; PLT - PLATELET COUNT 218 10^3/uL (130-450); RED CELL DISTRIBUTION WIDTH 14.4 % (12.0-15.0); WHITE BLOOD COUNT 4.9 x10^3/uL (4.8-10.8)
[2024-02-21 16:10] LABS: THYROID STIMULATING HORMONE 2.17 uIU/mL (0.34-5.60)
[2024-02-21 16:19] LABS: ALBUMIN 4.1 g/dL (3.2-5.5); ALBUMIN/GLOBULIN RATIO 2.1 (1.0-2.2); ALKALINE PHOSPHATASE 45 IU/L (42-121); ALT ALANINE AMINOTRANSFERASE 22 IU/L (10-60); AST ASPARTATE AMINOTRANSFERASE 22 IU/L (10-42); BILIRUBIN,TOTAL 0.6 mg/dL (0.2-1.0); BUN - BLOOD UREA NITROGEN 14 mg/dL (6-20); CALCIUM 8.9 mg/dL (8.5-10.3); CARBON DIOXIDE - CO2 28 mmol/L (21-32); CHLORIDE 108 mmol/L (101-111); CHOL/HDL RATIO 2.8 (<5.0); CHOLESTEROL 202 mg/dL; CREATININE 0.7 mg/dL (0.6-1.3); GFR - MDRD 112 (>89); GLUCOSE 101 mg/dL (74-104); HDL CHOLESTEROL 72 mg/dL; LDL CHOLESTEROL,CALCULATED 118 mg/dL; LDL/HDL RATIO 1.6 (<3.6); POTASSIUM 4.3 mmol/L (3.5-4.5); SODIUM 139 mmol/L (135-145); TOTAL PROTEIN 6.1 g/dL (6.4-8.9); TRIGLYCERIDES 61 mg/dL (48-352); VLDL CHOLESTEROL 12 mg/dL
== END 2024-02-21 10:06 | disposition home or self-care (01) ==
LOC: LAB.S 10:05
PROVIDERS: ATTEND Nurse Practitioner Acute Care
DX: Z13.228 Encounter for screening for other metabolic disorders (principal); Z13.220 Encounter for screening for lipoid disorders; Z12.5 Encounter for screening for malignant neoplasm of prostate; Z13.29 Encounter for screening for other suspected endocrine disorder; Z13.0 Encounter for screening for diseases of the blood and blood-forming organs and certain disorders involving the immune mechanism
CPT/HCPCS: 36415; 80053; 80061; 84443; 85025; G0103; 83721; 84153